=== PATIENT | female | born 2000 | race Caucasian/White ===

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

== ENCOUNTER → 2021-02-17 15:21 | Outpatient (BNVA) | payer MEDICAID, SELFPAY | PROVIDERS: PCP Registered Nurse; Visit Provider Registered Nurse | DX: N92.6 Irregular menstruation, unspecified (principal); N91.2 Amenorrhea, unspecified | CPT/HCPCS: 81025 ==

== ENCOUNTER → 2021-02-25 16:10 | Outpatient (BNVA) | payer MEDICAID, SELFPAY | PROVIDERS: PCP Registered Nurse; Visit Provider Nurse Practitioner | DX: N92.6 Irregular menstruation, unspecified (principal) | CPT/HCPCS: 81025 ==

== ENCOUNTER → 2021-04-05 14:35 | Outpatient (BNVA) | payer MEDICAID, SELFPAY | PROVIDERS: PCP Registered Nurse; Visit Provider Nurse Practitioner Family | DX: Z20.822 Contact with and (suspected) exposure to COVID-19 (principal); J06.9 Acute upper respiratory infection, unspecified | CPT/HCPCS: 87635 ==

== ENCOUNTER 2021-05-11 22:50 | Emergency (ER) | payer MEDICARE, MEDICAID, SELFPAY ==
[2021-05-11 23:00] VITALS: BP 103/70; PULSE 77; RESP 18; TEMP 36.9; O2SAT 99; BMI 26.0
--- NOTE | 2021-05-11 23:29 | W.ED.ABDPA2 ---
HPI - Abdominal Pain General: Chief Complaint: Abdominal Pain Stated Complaint: Left Side ADB Pain Time Seen by Provider: 05/11/21 22:54 Source: patient Mode of arrival: ambulatory Limitations: no limitations History of Present Illness: HPI narrative: 21-year-old female states she been having left lower quadrant suprapubic pain over the last 3 days. States pain is been sharp in nature and rates it a 5 out of 10. She states her last menstruation was a week ago. Denies any dysuria or vaginal discharge. She denies any worsening or improving factors. Denies any vomiting or diarrhea. Associated Symptoms: Denies chills, dysuria and fever(s) Review of Systems Const: Denies: fever(s), chills, body aches or change in appetite Eyes: Denies: blurry vision or eye discomfort ENMT: Denies: throat pain or dental pain Card: Denies: chest pain Resp: Denies: dyspnea GI: Reports: abdominal pain : Denies: dysuria Musc: Denies: neck pain or back pain Skin/Breast: Denies: rash Neuro: Denies: headache(s) Psych: Denies: depression Stewart/Lymph: Denies: easy bruising All/Imm: Denies: urticaria PFSH ED PFSH: Medical History Intellectual disability Family History Mother Diabetes Father Diabetes Social History Smoking and tobacco status: never smoked Alcohol intake: never Adopted: No Caregiver/support person: No Lives independently: No Household members: significant other and children service: No Current occupational status: unemployed History of recent travel: No Sexually active: Yes Current gender identity: Female Physical Exam Const: COMMON NORMALS: no acute distress, patient oriented x3 and healthy appearing HENMT: COMMON NORMALS: normocephalic and atraumatic HEAD & SCALP: normocephalic and atraumatic Eye: COMMON NORMALS: Equal, round and reactive pupils present and EOMs intact bilaterally PUPIL: Yes Equal, round and reactive pupils present Neck/C-Spine: COMMON NORMALS: full ROM and supple Chest: COMMONS NORMALS: normal inspection of the chest and normal palpation of entire chest wall Resp: COMMON NORMALS: normal respiratory effort, No retractions, No use of accessory muscles and clear to auscultation bilaterally AUSCULTATION: clear to auscultation bilaterally Cardio: COMMON NORMALS: regular rate, regular rhythm and No murmurs present (Cardio) RATE: regular rate RHYTHM: regular rhythm GI: COMMON NORMALS: Normal to inspection, nondistended, normoactive bowel sounds present, Soft to palpation and no masses PALPATION: Yes Soft to palpation and Yes Tenderness to palpation present (GI) Details: LLQ Extremity: COMMON NORMALS: normal to inspection and full ROM Neuro: COMMON NORMALS: patient oriented x3, moves all extremities and no focal motor deficits Psych: COMMON NORMALS: mental status grossly normal, Normal thought process present and cooperative THOUGHT PROCESS: Normal thought process present Skin: COMMON NORMALS: no rashes or lesions noted and no wounds GENERAL SKIN EXAM: no rashes or lesions noted Course Vital Signs: Vital signs: Vital Signs Temperature 98.5 F 05/11/21 23:00 Pulse Rate 68 05/12/21 00:09 Respiratory Rate 16 05/12/21 00:09 Blood Pressure 96/58 05/12/21 00:09 Pulse Oximetry 99 05/12/21 00:09 MDM - Abdominal Pain MDM Narrative: Medical decision making narrative: Patient presents with abdominal pain likely from epiploic appendagitis. She is well-appearing here and CT scan shows no other findings. She is stable for discharge is to follow-up PCP and return if worsening. Lab Data: Labs: Lab Results 05/11/21 05/11/21 05/11/21 Range/Units 23:30 23:30 23:35 WBC 11.1 (4.5-13.0) 10^3/ uL RBC 4.96 (4.1-5.3) 10^6/u L Hgb 12.5 (11.5-15.3) g/dL Hct 40.5 (37.0-47.0) % MCV 81.7 (81-99) fl MCH 25.2 L (28.0-34.0) pg MCHC 30.9 (30.0-36.0) g/dL RDW 14.8 (12.1-15.1) % Plt Count 256 (130-400) 10^3/c mm MPV 12.0 H (7.4-10.4) fL Neut % (Auto) 66.1 % Lymph % (Auto) 24.3 % Mcduffie % (Auto) 6.6 % Eos % (Auto) 2.2 % Baso % (Auto) 0.5 % Neut # (Auto) 7.34 (1.8-8.0) 10^3/u L Lymph # (Auto) 2.7 (1.5-6.5) 10^3/u L Mcduffie # (Auto) 0.7 (0.2-0.9) 10^3/u L Eos # (Auto) 0.2 (0.0-0.8) 10^3/u L Baso # (Auto) 0.1 (0.0-0.1) 10^3/u L Nucleated RBC % (a uto) 0 % Nucleated RBCs # 0.0 /100WBC Sodium (136-145) mmol/L Potassium (3.5-5.1) mmol/L Chloride (98-107) mmol/L Carbon Dioxide (22-29) mmol/L Anion Gap (5-19) BUN (6-20) mg/dL Creatinine (0.5-0.9) mg/dL GFR Calculation (90-130) mL/min Glucose (65-115) mg/dL Calculated Osmolal ity (285-295) mOsm/k g Calcium (8.5-10.5) mg/dL Total Bilirubin (0.15-1.2) mg/dL AST (0-32) U/L ALT (0-33) U/L Alkaline Phosphata se (35-105) IU/L Total Protein (6.6-8.7) g/dL Albumin (3.5-5.2) g/dL Globulin (1.3-4.6) g/dL Lipase (13-60) U/L Urine Color Yellow (Yellow) Urine Appearance Clear (CLEAR) Urine pH 5 (5-7) Ur Specific Gravit y 1.025 (1.005-1.030) Urine Protein Neg (Negative) Urine Glucose (UA) Norm (Normal) Urine Ketones Negative (Negative) Urine Blood Neg (Negative) Urine Nitrate Negative (Negative) Urine Bilirubin Neg (Negative) Urine Urobilinogen 1 H (Negative) mg/dL Ur Leukocyte Sofia ase Negative (Negative) Urine HCG, Qual Negative (Negative) 05/11/21 Range/Units 23:35 WBC (4.5-13.0) 10^3/ uL RBC (4.1-5.3) 10^6/u L Hgb (11.5-15.3) g/dL Hct (37.0-47.0) % MCV (81-99) fl MCH (28.0-34.0) pg MCHC (30.0-36.0) g/dL RDW (12.1-15.1) % Plt Count (130-400) 10^3/c mm MPV (7.4-10.4) fL Neut % (Auto) % Lymph % (Auto) % Mcduffie % (Auto) % Eos % (Auto) % Baso % (Auto) % Neut # (Auto) (1.8-8.0) 10^3/u L Lymph # (Auto) (1.5-6.5) 10^3/u L Mcduffie # (Auto) (0.2-0.9) 10^3/u L Eos # (Auto) (0.0-0.8) 10^3/u L Baso # (Auto) (0.0-0.1) 10^3/u L Nucleated RBC % (a uto) % Nucleated RBCs # /100WBC Sodium 141 (136-145) mmol/L Potassium 4.1 (3.5-5.1) mmol/L Chloride 104 (98-107) mmol/L Carbon Dioxide 26 (22-29) mmol/L Anion Gap 15.1 (5-19) BUN 12 (6-20) mg/dL Creatinine 0.6 (0.5-0.9) mg/dL GFR Calculation 127.5 (90-130) mL/min Glucose 89 (65-115) mg/dL Calculated Osmolal ity 291 (285-295) mOsm/k g Calcium 9.2 (8.5-10.5) mg/dL Total Bilirubin 0.2 (0.15-1.2) mg/dL AST 17 (0-32) U/L ALT 20 (0-33) U/L Alkaline Phosphata se 86 (35-105) IU/L Total Protein 7.5 (6.6-8.7) g/dL Albumin 4.5 (3.5-5.2) g/dL Globulin 3.0 (1.3-4.6) g/dL Lipase 31 (13-60) U/L Urine Color (Yellow) Urine Appearance (CLEAR) Urine pH (5-7) Ur Specific Gravit y (1.005-1.030) Urine Protein (Negative) Urine Glucose (UA) (Normal) Urine Ketones (Negative) Urine Blood (Negative) Urine Nitrate (Negative) Urine Bilirubin (Negative) Urine Urobilinogen (Negative) mg/dL Ur Leukocyte Sofia ase (Negative) Urine HCG, Qual (Negative) Imaging Data ^: CT Abd/Pel: Attestation: I personally reviewed and interpreted this imaging study as follows: Radiologist's impression: [facility] [employer] [address] [address] Scan Report Signed Patient: Rupinder Boyer Unit #: [id number] : 2000 Age/Sex: 21 / F ADM Date: 05/11/21 Loc: ER Room/Bed: Attending Dr: Ordering Provider/Ordering MD: Mio Tapia MD Date of Service: 05/11/21 Procedure(s): CT abdomen pelvis w con* [id number] Accession Number(s): [id number] Report Number: [id number] PROCEDURE INFORMATION: Exam: CT Abdomen And Pelvis With Contrast Exam date and time: 05/11/2021 11:58 PM Age: 21 years old Clinical indication: Abdominal pain; Localized; Left; Prior surgery; Surgery type: Csection; Patient HX: Lt side abd pain. TECHNIQUE: Imaging protocol: Computed tomography of the abdomen and pelvis with contrast. Radiation optimization: All CT scans at this facility use at least one of these dose optimization techniques: automated exposure control; mA and/or kV adjustment per patient size (includes targeted exams where dose is matched to clinical indication); or iterative reconstruction. Contrast material: OMNI 300; Contrast volume: 95 ml; Contrast route: INTRAVENOUS (IV); COMPARISON: No relevant prior studies available. RADIATION DOSE METRICS: Total DLP (mGy-cm): 1094.73 FINDINGS: Liver: Normal. No mass. Gallbladder and bile ducts: Normal. No calcified stones. No ductal dilation. Pancreas: Normal. No ductal dilation. Spleen: Normal. No splenomegaly. Adrenal glands: Normal. No mass. Kidneys and ureters: One or more nonobstructing left renal calyceal stones. Stomach and bowel: Epiploic appendagitis in the left lower quadrant near the junction of the descending colon and sigmoid colon, axial series 2, image 65, coronal image 34. Appendix: Normal appendix. Intraperitoneal space: Unremarkable. No free air. No significant fluid collection. Vasculature: Unremarkable. No abdominal aortic aneurysm. Lymph nodes: Unremarkable. No enlarged lymph nodes. Urinary bladder: Unremarkable as visualized. Reproductive: Unremarkable as visualized. Bones/joints: Unremarkable. No acute fracture. Soft tissues: Unremarkable. CT/CT abdomen pelvis w con* [id number] IMPRESSION: Epiploic appendagitis in the left lower quadrant near the junction of the descending colon and sigmoid colon, axial series 2, image 65, coronal image 34. Radiation Dose CTDIVOL = (mGy): DLP = 1094.73 (mGy-cm) Dictated By: Steven Eckert MD Signed By: Steven Eckert MD Signed Date/Time: 05/12/21107 DD/ 5 Discharge Plan Discharge Patient Disposition: Home Clinical Impression: Epiploic appendagitis Condition: Stable Prescriptions: New hydrocodone-acetaminophen 5-325 mg tablet 1 tab PO Q6H PRN (Reason: pain) Qty: 14 RF: 0 ondansetron 4 mg tablet,disintegrating 4 mg PO Q6H PRN (Reason: nausea and vomiting) Qty: 14 RF: 0 Discharge Orders: Discharge ED (Routine); Ordered 05/12/21 Ordered By: Mio Tapia Discharge Diet: Advance as tolerated Discharge Activity: Resume usual activity Patient Instructions: Abdominal Pain (ED), Opioid Safety Coding Level of Care Code ED Dice Dealer for Patria Fwd Exam Comprehensive
[2021-05-11 23:49] VITALS: BP 98/67; PULSE 74; RESP 16; O2SAT 98
[2021-05-11 23:50] LABS: Basophils # 0.1 10^3/uL (0.0-0.1); Basophils % 0.5 %; Eosinophils # 0.2 10^3/uL (0.0-0.8); Eosinophils % 2.2 %; Hematocrit 40.5 % (37.0-47.0); Hemoglobin 12.5 g/dL (11.5-15.3); Lymphocytes # 2.7 10^3/uL (1.5-6.5); Lymphocytes % 24.3 %; Mean Corpuscular HGB Conc 30.9 g/dL (30.0-36.0); Mean Corpuscular Hemoglobin 25.2 pg (28.0-34.0); Mean Corpuscular Volume 81.7 fl (81-99); Monocytes # 0.7 10^3/uL (0.2-0.9); Monocytes % 6.6 %; Neutrophils # 7.34 10^3/uL (1.8-8.0); Neutrophils % 66.1 %; Nucleated Red Blood Cells % 0 %; Platelet Count 256 10^3/cmm (130-400); Red Blood Count 4.96 10^6/uL (4.1-5.3); Red Cell Distribution Width 14.8 % (12.1-15.1); White Blood Count 11.1 10^3/uL (4.5-13.0)
[2021-05-11 23:53] LABS: Add Urine Microscopic? NO; Charge for UA Resulting for Rev
[2021-05-11 23:55] LABS: Bilirubin Urine Neg (Negative); Blood Urine Neg (Negative); Glucose Urine UA Norm (Normal); Ketones Urine Negative (Negative); Leukocyte Esterase Urine Negative (Negative); Nitrate Urine Negative (Negative); Protein Urine Neg (Negative); Specific Gravity, Urine 1.025 (1.005-1.030); Urine Appearance Clear (CLEAR); Urine Color Yellow (Yellow); Urobilinogen Urine 1 mg/dL (Negative); pH Urine 5 (5-7)
--- NOTE | 2021-05-11 23:58 | CTR_ITS ---
PROCEDURE INFORMATION: Exam: CT Abdomen And Pelvis With Contrast Exam date and time: 05/11/2021 11:58 PM Age: 21 years old Clinical indication: Abdominal pain; Localized; Left; Prior surgery; Surgery type: Csection; Patient HX: Lt side abd pain. TECHNIQUE: Imaging protocol: Computed tomography of the abdomen and pelvis with contrast. Radiation optimization: All CT scans at this facility use at least one of these dose optimization techniques: automated exposure control; mA and/or kV adjustment per patient size (includes targeted exams where dose is matched to clinical indication); or iterative reconstruction. Contrast material: OMNI 300; Contrast volume: 95 ml; Contrast route: INTRAVENOUS (IV); COMPARISON: No relevant prior studies available. RADIATION DOSE METRICS: Total DLP (mGy-cm): 1094.73 FINDINGS: Liver: Normal. No mass. Gallbladder and bile ducts: Normal. No calcified stones. No ductal dilation. Pancreas: Normal. No ductal dilation. Spleen: Normal. No splenomegaly. Adrenal glands: Normal. No mass. Kidneys and ureters: One or more nonobstructing left renal calyceal stones. Stomach and bowel: Epiploic appendagitis in the left lower quadrant near the junction of the descending colon and sigmoid colon, axial series 2, image 65, coronal image 34. Appendix: Normal appendix. Intraperitoneal space: Unremarkable. No free air. No significant fluid collection. Vasculature: Unremarkable. No abdominal aortic aneurysm. Lymph nodes: Unremarkable. No enlarged lymph nodes. Urinary bladder: Unremarkable as visualized. Reproductive: Unremarkable as visualized. Bones/joints: Unremarkable. No acute fracture. Soft tissues: Unremarkable. CT/CT abdomen pelvis w con* [id number] IMPRESSION: Epiploic appendagitis in the left lower quadrant near the junction of the descending colon and sigmoid colon, axial series 2, image 65, coronal image 34. Radiation Dose CTDIVOL = (mGy): DLP = 1094.73 (mGy-cm)
[2021-05-11 23:59] VITALS: RESP 18
[2021-05-11] MEDS: morphine 4 mg/mL SDV 1 mL IVP (23:59)
[2021-05-11] MEDS: ondansetron 2 mg/ML SDV 2 mL 4 MG IVP (23:59)
[2021-05-12 00:06] LABS: Alanine Aminotransferase 20 U/L (0-33); Albumin Level 4.5 g/dL (3.5-5.2); Alkaline Phosphatase 86 IU/L (35-105); Anion Gap 15.1 (5-19); Aspartate Amino Transferase 17 U/L (0-32); Blood Urea Nitrogen 12 mg/dL (6-20); Calcium 9.2 mg/dL (8.5-10.5); Carbon Dioxide 26 mmol/L (22-29); Chloride 104 mmol/L (98-107); Glomerular Filtration Rate 127.5 mL/min (90-130); Glucose 89 mg/dL (65-115); Lipase 31 U/L (13-60); Osmolality Calculated 291 mOsm/kg (285-295); Potassium 4.1 mmol/L (3.5-5.1); Sodium 141 mmol/L (136-145); Total Bilirubin 0.2 mg/dL (0.15-1.2); Total Protein 7.5 g/dL (6.6-8.7)
[2021-05-12 00:09] VITALS: BP 96/58; PULSE 68; RESP 16; O2SAT 99
[2021-05-12] MEDS: iohexol 300 mg/mL 100 mL Btl IV (00:09)
--- NOTE | 2021-05-12 00:09 | PC.NURSE ---
patient to ct
[2021-05-12] MEDS: morphine 4 mg/mL SDV 1 mL IVP (01:24)
[2021-05-12 01:25] VITALS: BP 119/77; PULSE 76; RESP 18; O2SAT 99
[2021-05-12 01:33] VITALS: BP 108/77; PULSE 79; RESP 18; O2SAT 99
== END 2021-05-12 01:33 | disposition home or self-care (01) ==
PROVIDERS: Emergency Provider Emergency Medicine
DX: K63.89 Other specified diseases of intestine (principal)
CPT/HCPCS: 74177; 80053; 81003; 81025; 83690; 85025; 96374; 96375; 96376; 99283; J2270; J2405; Q9967

== ENCOUNTER 2021-05-20 18:54 | Emergency (ER) | payer MEDICARE, MEDICAID, SELFPAY ==
[2021-05-20 19:01] VITALS: BP 100/65; PULSE 100; RESP 18; TEMP 36.5; O2SAT 99; BMI 26.0
--- NOTE | 2021-05-20 19:08 | PC.NURSE ---
Urine collected and sent to lab in triage
[2021-05-20 19:43] VITALS: BP 111/54; PULSE 68; RESP 16; TEMP 37.1; O2SAT 98
[2021-05-20 19:45] LABS: Basophils # 0.1 10^3/uL (0.0-0.1); Basophils % 0.4 %; Eosinophils # 0.3 10^3/uL (0.0-0.8); Eosinophils % 2.7 %; Hematocrit 40.2 % (37.0-47.0); Hemoglobin 12.3 g/dL (11.5-15.3); Lymphocytes # 2.4 10^3/uL (1.5-6.5); Lymphocytes % 21.6 %; Mean Corpuscular HGB Conc 30.6 g/dL (30.0-36.0); Mean Corpuscular Hemoglobin 25.1 pg (28.0-34.0); Mean Platelet Volume 11.6 fL (7.4-10.4); Monocytes # 0.8 10^3/uL (0.2-0.9); Monocytes % 7.3 %; Neutrophils # 7.64 10^3/uL (1.8-8.0); Neutrophils % 67.7 %; Nucleated Red Blood Cells % 0 %; Platelet Count 274 10^3/cmm (130-400); Red Cell Distribution Width 14.6 % (12.1-15.1); White Blood Count 11.3 10^3/uL (4.5-13.0)
--- NOTE | 2021-05-20 19:45 | ED_ITS ---
HPI - Abdominal Pain General: Chief Complaint: Abdominal Pain Stated Complaint: L side Pain Time Seen by Provider: 05/20/21 19:10 History of Present Illness: HPI narrative: Patient presents with same pain that she had last week. Patient states medication did help her get better and then the pain has come back. She denies any fever chills nausea vomiting or diarrhea. MD elicited complaint: abdominal pain Pertinent past history: other (Seen last week epiploic appendagitis) Onset (ago): day(s) Pain Consistency: intermittent Location: LUQ and LLQ Severity: mild Quality: aching Radiation: other (Across abdomen) Exacerbating factors: nothing Relieving factors: nothing Associated Symptoms: Reports no associated symptoms; Denies chills, fever(s), nausea and vomiting Related Data: Date of Last Menstrual Period: 05/01/21 Review of Systems Const: Denies: fever(s), chills or body aches Eyes: Denies: change in vision or blurry vision ENMT: Denies: throat pain or nasal congestion Card: Denies: chest pain or dyspnea on exertion Resp: Denies: dyspnea, productive cough or non-productive cough GI: Reports: abdominal pain; Denies: nausea or vomiting Musc: Denies: extremity pain Skin/Breast: Denies: rash Neuro: Denies: headache(s) Psych: Denies: anxiety or depression Stewart/Lymph: Denies: easy bruising PFSH ED PFSH: Medical History Intellectual disability Family History Mother Diabetes Father Diabetes Social History Smoking and tobacco status: never smoked Alcohol intake: never Adopted: No Caregiver/support person: No Lives independently: No Household members: significant other and children service: No Current occupational status: unemployed History of recent travel: No Sexually active: Yes Current gender identity: Female Female Reproductive History: Date of last menstrual period: 05/01/21 Physical Exam Const: COMMON NORMALS: no acute distress, average body habitus and patient oriented x3 HENMT: COMMON NORMALS: normocephalic HEAD & SCALP: normal to inspection and normocephalic FACE & SINUS: normal facial exam Eye: COMMON NORMALS: conjunctivae normal GENERAL EYE: appearance normal, both eyes and all related structures CONJUNCTIVA: Yes conjunctivae normal Neck/C-Spine: COMMON NORMALS: no JVD Chest: COMMONS NORMALS: normal inspection of the chest Resp: COMMON NORMALS: normal respiratory effort and clear to auscultation bilaterally AUSCULTATION: clear to auscultation bilaterally Cardio: COMMON NORMALS: no JVD, regular rate and regular rhythm RATE: regular rate RHYTHM: regular rhythm GI: COMMON NORMALS: Normal to inspection, nondistended, normoactive bowel sounds present Extremity: COMMON NORMALS: normal to inspection and full ROM Neuro: COMMON NORMALS: patient oriented x3 Course Vital Signs: Vital signs: Vital Signs Temperature 98.7 F 05/20/21 19:43 Pulse Rate 68 05/20/21 19:43 Respiratory Rate 16 05/20/21 19:43 Blood Pressure 111/54 05/20/21 19:43 Pulse Oximetry 98 05/20/21 19:43 MDM - Abdominal Pain MDM Narrative: Medical decision making narrative: Labs appear normal. White count is fine. Urine appears contaminated with epithelial cells. Patient encouraged to take another week of medication follow-up primary care provider Lab Data: Labs: Lab Results 05/20/21 05/20/21 05/20/21 19:01 19:39 19:39 WBC 11.3 10^3/uL 10^3 /uL (4.5-13.0) RBC 4.90 10^6/uL 10^6 /uL (4.1-5.3) Hgb 12.3 g/dL g/dL (11.5-15.3) Hct 40.2 % % (37.0-47.0) MCV 82.0 fl fl (81-99) MCH 25.1 pg L pg (28.0-34.0) MCHC 30.6 g/dL g/dL (30.0-36.0) RDW 14.6 % % (12.1-15.1) Plt Count 274 10^3/cmm 10^3 /cmm (130-400) MPV 11.6 fL H fL (7.4-10.4) Neut % (Auto) 67.7 % % Lymph % (Auto) 21.6 % % Sullivan % (Auto) 7.3 % % Eos % (Auto) 2.7 % % Baso % (Auto) 0.4 % % Neut # (Auto) 7.64 10^3/uL 10^3 /uL (1.8-8.0) Lymph # (Auto) 2.4 10^3/uL 10^3/ uL (1.5-6.5) Sullivan # (Auto) 0.8 10^3/uL 10^3/ uL (0.2-0.9) Eos # (Auto) 0.3 10^3/uL 10^3/ uL (0.0-0.8) Baso # (Auto) 0.1 10^3/uL 10^3/ uL (0.0-0.1) Nucleated RBC % (a uto) 0 % % Nucleated RBCs # 0.0 /100WBC /100W BC Sodium 139 mmol/L mmol/L (136-145) Potassium 3.6 mmol/L mmol/L (3.5-5.1) Chloride 105 mmol/L mmol/L (98-107) Carbon Dioxide 26 mmol/L mmol/L (22-29) Anion Gap 11.6 (5-19) BUN 11 mg/dL mg/dL (6-20) Creatinine 0.7 mg/dL mg/dL (0.5-0.9) GFR Calculation 106.7 mL/min mL/m in (90-130) Glucose 127 mg/dL H mg/dL (65-115) Calculated Osmolal ity 289 mOsm/kg mOsm/ kg (285-295) Calcium 9.1 mg/dL mg/dL (8.5-10.5) Lipase 32 U/L U/L (13-60) Urine Color Yellow (Yellow) Urine Appearance Sl cloudy A (CLEAR) Urine pH 5 (5-7) Ur Specific Gravit y 1.025 (1.005-1.030) Urine Protein Neg (Negative) Urine Glucose (UA) Norm (Normal) Urine Ketones 1+ H (Negative) Urine Blood Neg (Negative) Urine Nitrate Negative (Negative) Urine Bilirubin Neg (Negative) Urine Urobilinogen 1 mg/dL H mg/dL (Negative) Ur Leukocyte Sofia ase 1+ H (Negative) Urine RBC 0-4 /hpf H /hpf (0-2) Urine WBC 10-15 /hpf H /hpf (0-5) Ur Squamous Epith Cells 25-40 /hpf H /hpf (0-5) Amorphous Sediment Not Reportable Urine Bacteria 2+ /hpf H /hpf (NONE) Urine Mucus 2+ /hpf /hpf Discharge Plan Discharge Patient Disposition: Home Clinical Impression: Epiploic appendagitis Condition: Stable Prescriptions: New Celebrex 100 mg capsule 100 mg PO BID Qty: 20 RF: 0 Discharge Orders: Discharge ED (Routine); Ordered 05/20/21 Ordered By: Jasper Jane Discharge Diet: Usual diet Discharge Activity: Resume usual activity Activity Restrictions/Additional Instructions: Follow-up with medical provider as directed. Take medications as prescribed. Return to the ER or your medical provider if condition worsens. Please read and understand discharge instructions. If any questions ask please. You have epiploic appendagitis. Generally benign resolves within 2 weeks. If no significant provement after next week follow-up your primary care provider Coding Level of Care Code ED Deportation Examiner for Patria Fwsaumya Exam Comprehensive
[2021-05-20 20:02] LABS: Anion Gap 11.6 (5-19); Blood Urea Nitrogen 11 mg/dL (6-20); Calcium 9.1 mg/dL (8.5-10.5); Carbon Dioxide 26 mmol/L (22-29); Chloride 105 mmol/L (98-107); Glomerular Filtration Rate 106.7 mL/min (90-130); Glucose 127 mg/dL (65-115); Lipase 32 U/L (13-60); Osmolality Calculated 289 mOsm/kg (285-295); Potassium 3.6 mmol/L (3.5-5.1); Sodium 139 mmol/L (136-145)
[2021-05-20 20:06] LABS: Urine Color Yellow (Yellow)
[2021-05-20 20:07] LABS: Add Urine Microscopic? YES; Bacteria Urine 2+ /hpf; Bilirubin Urine Neg (Negative); Blood Urine Neg (Negative); Glucose Urine UA Norm (Normal); Ketones Urine 1+ (Negative); Leukocyte Esterase Urine 1+ (Negative); Nitrate Urine Negative (Negative); Protein Urine Neg (Negative); RBC Urine 0-4 /hpf (0-2); Specific Gravity, Urine 1.025 (1.005-1.030); Squamous Epithelial Cell Urine 25-40 /hpf (0-5); Urobilinogen Urine 1 mg/dL (Negative); pH Urine 5 (5-7)
[2021-05-20 20:08] LABS: Add Urine Culture? No; Mucus Urine 2+ /hpf
[2021-05-20] MEDS: CELEcoxib 200 mg Capsule 400 MG PO (21:04)
== END 2021-05-20 21:05 | disposition home or self-care (01) ==
PROVIDERS: Emergency Provider Nurse Practitioner Family
DX: K63.89 Other specified diseases of intestine (principal)
CPT/HCPCS: 80048; 81001; 83690; 85025; 99283

== ENCOUNTER → 2021-05-27 13:18 | Outpatient (BNVA) | payer MEDICARE, MEDICAID, SELFPAY | PROVIDERS: Visit Provider Registered Nurse | DX: Z09 Encounter for follow-up examination after completed treatment for conditions other than malignant neoplasm (principal); K63.89 Other specified diseases of intestine | CPT/HCPCS: 81000 ==

== ENCOUNTER 2022-05-16 10:14 | Emergency (ER) | payer MEDICARE, MEDICAID, SELFPAY ==
[2022-05-16 10:29] VITALS: BP 118/65; PULSE 92; RESP 16; TEMP 36.8; O2SAT 97; BMI 25.7
[2022-05-16 10:40] LABS: Glucose Point of Care 110 mg/dL (70-110)
[2022-05-16 11:07] LABS: Basophils % 0.4 %; Eosinophils # 0.1 10^3/uL (0.0-0.8); Eosinophils % 1.2 %; Hematocrit 44.5 % (37.0-47.0); Hemoglobin 13.6 g/dL (11.5-15.3); Lymphocytes # 2.5 10^3/uL (0.8-4.8); Lymphocytes % 24.4 %; Mean Corpuscular HGB Conc 30.6 g/dL (30.0-36.0); Mean Corpuscular Hemoglobin 25.4 pg (28.0-34.0); Mean Corpuscular Volume 83.2 fl (81-99); Mean Platelet Volume 12.3 fL (7.4-10.4); Monocytes # 0.6 10^3/uL (0.2-0.9); Neutrophils # 7.04 10^3/uL (1.8-7.7); Neutrophils % 67.7 %; Nucleated Red Blood Cells % 0 %; Platelet Count 242 10^3/cmm (130-400); Red Blood Count 5.35 10^6/uL (4.1-5.3); Red Cell Distribution Width 14.5 % (12.1-15.1); White Blood Count 10.4 10^3/uL (4.0-10.0)
--- NOTE | 2022-05-16 11:20 | ED_ITS ---
HPI - Abdominal Pain General: Chief Complaint: Abdominal Pain Stated Complaint: ABD Pain Time Seen by Provider: 05/16/22 10:55 Source: patient Mode of arrival: ambulatory Limitations: no limitations History of Present Illness: This patient presents by private vehicle for abdominal pain. She states this pain began earlier this morning. She states she had the urge to defecate and she had a bowel movement but pain is still present. She does relate prior episodes of what she says is constipation but states she is not had symptoms like this in the past that she is aware. She denies any dysuria. Vomiting or diarrhea. She states she does not have an appetite. No history of recent fevers or injury. She denies vaginal discharge. She uses Depo-Provera for contraception. She denies abdominal surgeries. She denies known exposure to infectious disease recent travel recent antibiotic use etc. No history of frequent urinary tract infections, STDs, kidney stones. Pain Consistency: constant Location: LLQ Severity: moderate Quality: sharp Migration to: no migration Relieving factors: nothing Associated Symptoms: Denies bloating, chills, diarrhea, dysuria, fever(s), syncope and vomiting Related Data: Date of Last Menstrual Period: 05/01/21 Review of Systems Const: Denies: fever(s) or chills Eyes: Denies: change in vision ENMT: Denies: throat pain, odynophagia or nasal congestion Card: Denies: chest pain, palpitations, lightheadedness or syncope Resp: Denies: dyspnea, productive cough or non-productive cough GI: Reports: abdominal pain; Denies: vomiting, diarrhea or bloating : Denies: flank pain, difficulty voiding, dysuria, urinary frequency, vaginal discharge or pelvic pain Skin/Breast: Denies: rash or pruritus Neuro: Denies: headache(s), numbness in extremities or weakness in extremities Psych: Denies: anxiety or depression PFS ED PFSH: Medical History Intellectual disability Family History Mother Diabetes Father Diabetes Social History Smoking and tobacco status: never smoked Alcohol intake: never Adopted: No Caregiver/support person: No Lives independently: No Household members: significant other and children service: No Current occupational status: unemployed History of recent travel: No Sexually active: Yes Current gender identity: Female Female Reproductive History: Date of last menstrual period: 05/01/21 Physical Exam Narrative: EXAM NARRATIVE: She appears uncomfortable but is able to communicate in full sentences and make good eye contact. Const: COMMON NORMALS: average body habitus, patient oriented x3, healthy appearing and alert HENMT: COMMON NORMALS: normocephalic, atraumatic, Normal nasal mucous membranes and turbinates present, moist oral mucous membranes and oropharynx normal HEAD & SCALP: normocephalic and atraumatic FACE & SINUS: normal facial exam NOSE: Normal nasal mucous membranes and turbinates present Eye: COMMON NORMALS: Equal, round and reactive pupils present, conjunctivae normal and no scleral icterus CONJUNCTIVA: Yes conjunctivae normal PUPIL: Yes Equal, round and reactive pupils present Neck/C-Spine: COMMON NORMALS: full ROM and no meningeal signs Chest: COMMONS NORMALS: normal inspection of the chest Resp: COMMON NORMALS: normal respiratory effort, No retractions and clear to auscultation bilaterally EFFORT & INSPECTION: Yes able to speak in complete sentences AUSCULTATION: clear to auscultation bilaterally Cardio: COMMON NORMALS: regular rate, regular rhythm, No murmurs present (Cardio) and Peripheral pulses 2+ throughout RATE: regular rate RHYTHM: regular rhythm PERIPHERAL PULSES: Peripheral pulses 2+ throughout GI: COMMON NORMALS: Normal to inspection, nondistended, normoactive bowel sounds present INSPECTION: Yes normal to inspection OTHER: Abdomen is generally normal in appearance without any ecchymosis skin rash etc. Her abdomen is soft to palpation however she has voluntary guarding with palpation of the left lower quadrant. Rotation of her trunk seem to exacerbate her symptoms. No other areas of focal tenderness noted. No palpable mass externally. : COMMON NORMALS: Yes no CVA tenderness BLADDER/KIDNEY EXAM: Yes no CVA tenderness Back/Pelvis: COMMON NORMALS: no CVA tenderness, thoracic and lumbar spine normal to inspection, no thoracic nor lumbar tenderness and thoraco-lumbar ROM normal Extremity: COMMON NORMALS: normal to inspection, capillary refill normal, no calf tenderness and no pedal edema Neuro: COMMON NORMALS: patient oriented x3, moves all extremities, no focal motor deficits and gait normal SENSORIUM/ORIENTATION: Yes alert MENINGEAL SIGNS: Yes no meningeal signs Psych: COMMON NORMALS: mental status grossly normal and cooperative Skin: COMMON NORMALS: no rashes or lesions noted, turgor normal and no jaundice GENERAL SKIN EXAM: no rashes or lesions noted and turgor normal Course Reevaluation(s): Reevaluation #1: Patient was reevaluated. She was observed to be very comfortable. She was interacting with her mobile phone when I entered the room. She was smiling and interacting in a normal voice. Repeat examination reveals her abdomen to be soft without any rebound, guarding, other concerning findings upon repeat examination. I shared with her her findings likely suggestive and supportive of a bladder or lower urinary tract infection as the etiology of her symptoms and that I did not feel that clinically imaging or additional work-up was indicated at this point in time that we would begin empiric treatment. She acknowledged our discussion and was satisfied with the plan of care. Time: 12:54 Vital Signs: Vital signs: Vital Signs Temperature 98.2 F 05/16/22 10:29 Pulse Rate 92 05/16/22 10:29 Respiratory Rate 16 05/16/22 10:29 Blood Pressure 118/65 05/16/22 10:29 Pulse Oximetry 97 05/16/22 10:29 Oxygen Delivery Me thod 05/16/22 10:29 MDM - Abdominal Pain Medical Decision Making Otherwise healthy young woman who presented with lower abdominal discomfort this morning. Her clinical exam did not suggest a surgical abdomen and ancillary studies supported likely lower urinary tract infection as the etiology to her symptoms. She was extremely comfortable and symptoms resolved after single ad ministration of ketorolac upon reexamination no new or focal findings. We will begin empiric therapy with return precautions which she acknowledged. Of also advised her to continue increased fluids and fiber given her history of recurrent constipation however her clinical examination revealed no evidence at this time of an ongoing emergency medical condition required further hospital or emergency department observation or work-up. Medical Records I reviewed the patient's medical records. Lab Data I reviewed the patient's lab results. : 05/16/22 11:00 05/16/22 11:00 Labs/Radiology: Laboratory Results WBC 10.4 10^3/uL (4.0-10.0) H 05/16/22 11:00 RBC 5.35 10^6/uL (4.1-5.3) H 05/16/22 11:00 Hgb 13.6 g/dL (11.5-15.3) 05/16/22 11:00 Hct 44.5 % (37.0-47.0) 05/16/22 11:00 MCV 83.2 fl (81-99) 05/16/22 11:00 MCH 25.4 pg (28.0-34.0) L 05/16/22 11:00 MCHC 30.6 g/dL (30.0-36.0) 05/16/22 11:00 RDW 14.5 % (12.1-15.1) 05/16/22 11:00 Plt Count 242 10^3/cmm (130-400) 05/16/22 11:00 MPV 12.3 fL (7.4-10.4) H 05/16/22 11:00 Neut % (Auto) 67.7 % 05/16/22 11:00 Lymph % (Auto) 24.4 % 05/16/22 11:00 [place] % (Auto) 6.0 % 05/16/22 11:00 Eos % (Auto) 1.2 % 05/16/22 11:00 Baso % (Auto) 0.4 % 05/16/22 11:00 Neut # (Auto) 7.04 10^3/uL (1.8-7.7) 05/16/22 11:00 Lymph # (Auto) 2.5 10^3/uL (0.8-4.8) 05/16/22 11:00 [place] # (Auto) 0.6 10^3/uL (0.2-0.9) 05/16/22 11:00 Eos # (Auto) 0.1 10^3/uL (0.0-0.8) 05/16/22 11:00 Baso # (Auto) 0.0 10^3/uL (0.0-0.1) 05/16/22 11:00 Nucleated RBC % (auto) 0 % 05/16/22 11:00 Nucleated RBCs # 0.0 /100WBC 05/16/22 11:00 Sodium 138 mmol/L (136-145) 05/16/22 11:00 Potassium 3.9 mmol/L (3.5-5.1) 05/16/22 11:00 Chloride 101 mmol/L (98-107) 05/16/22 11:00 Carbon Dioxide 24 mmol/L (22-29) 05/16/22 11:00 Anion Gap 16.9 (5-19) 05/16/22 11:00 BUN 11 mg/dL (6-20) 05/16/22 11:00 Creatinine 0.9 mg/dL (0.5-0.9) 05/16/22 11:00 GFR Calculation 79.0 mL/min (90-130) L 05/16/22 11:00 Glucose 118 mg/dL (65-115) H 05/16/22 11:00 POC Glucose 110 mg/dL (70-110) 05/16/22 10:34 Calculated Osmolality 286 mOsm/kg (285-295) 05/16/22 11:00 Calcium 9.6 mg/dL (8.5-10.5) 05/16/22 11:00 Total Bilirubin 0.3 mg/dL (0.15-1.2) 05/16/22 11:00 AST 17 U/L (0-32) 05/16/22 11:00 ALT 20 U/L (0-33) 05/16/22 11:00 Alkaline Phosphatase 75 U/L (35-105) 05/16/22 11:00 Total Protein 8.0 g/dL (6.6-8.7) 05/16/22 11:00 Albumin 4.7 g/dL (3.5-5.2) 05/16/22 11:00 Globulin 3.3 g/dL (1.3-4.6) 05/16/22 11:00 HCG, Qual Negative (Negative) 05/16/22 12:00 Urine Color Yellow (Yellow) 05/16/22 12:00 Urine Appearance Hazy (CLEAR) A 05/16/22 12:00 Urine pH 5 (5-7) 05/16/22 12:00 Ur Specific [place] 1.020 (1.005-1.030) 05/16/22 12:00 Urine Protein Trace (Negative) 05/16/22 12:00 Urine Glucose (UA) Norm (Normal) 05/16/22 12:00 Urine Ketones 1+ (Negative) H 05/16/22 12:00 Urine Blood 3+ (Negative) H 05/16/22 12:00 Urine Nitrate Negative (Negative) 05/16/22 12:00 Urine Bilirubin Neg (Negative) 05/16/22 12:00 Urine Urobilinogen Neg mg/dL (Negative) 05/16/22 12:00 Ur Leukocyte Esterase Trace (Negative) H 05/16/22 12:00 Urine RBC 25-40 /hpf (0-2) H 05/16/22 12:00 Urine WBC 5-10 /hpf (0-5) H 05/16/22 12:00 Ur Squamous Epith Cells 5-10 /hpf (0-5) H 05/16/22 12:00 Amorphous Sediment 1+ /hpf 05/16/22 12:00 Urine Bacteria Trace /hpf (NONE) 05/16/22 12:00 Urine Mucus 1+ /hpf 05/16/22 12:00 Discharge Plan Discharge Patient Disposition: Home Clinical Impression: Urinary tract infection Condition: Stable Prescriptions: New cephalexin 250 mg/5 mL suspension for reconstitution 500 mg PO BID 7 Days Qty: 140 0RF Discharge Orders: Discharge ED (Routine); Ordered 05/16/22 Ordered By: Manfred Christine Referrals: Carlos Alas FNP [Primary Care Provider] - Discharge Diet: Usual diet Discharge Activity: Increase activity as tolerated Patient Instructions: Opioid Safety, Pain Management Activity Restrictions/Additional Instructions: Ensure that you are drinking at least 1 to 2 L of fluids such as water, sports drinks etc. daily. Take medications as prescribed. If your symptoms do not continue to improve, return, or new symptoms develop at any time return to this or the nearest emergency department. 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
[2022-05-16 11:28] LABS: Alanine Aminotransferase 20 U/L (0-33); Albumin Level 4.7 g/dL (3.5-5.2); Alkaline Phosphatase 75 U/L (35-105); Anion Gap 16.9 (5-19); Aspartate Amino Transferase 17 U/L (0-32); Blood Urea Nitrogen 11 mg/dL (6-20); Calcium 9.6 mg/dL (8.5-10.5); Carbon Dioxide 24 mmol/L (22-29); Chloride 101 mmol/L (98-107); Globulin 3.3 g/dL (1.3-4.6); Glucose 118 mg/dL (65-115); Osmolality Calculated 286 mOsm/kg (285-295); Potassium 3.9 mmol/L (3.5-5.1); Sodium 138 mmol/L (136-145); Total Bilirubin 0.3 mg/dL (0.15-1.2)
[2022-05-16] MEDS: ketorolac 30 mg/mL INJ 15 MG IVP (12:02)
[2022-05-16 12:08] LABS: HCG Qualitative Urine. Negative (Negative)
[2022-05-16 12:42] LABS: Glucose Urine UA Norm (Normal); Ketones Urine 1+ (Negative); Protein Urine Trace (Negative); Urine Appearance Hazy (CLEAR); Urine Color Yellow (Yellow); pH Urine 5 (5-7)
[2022-05-16 12:43] LABS: Add Urine Microscopic? YES; Bilirubin Urine Neg (Negative); Blood Urine 3+ (Negative); Leukocyte Esterase Urine Trace (Negative); Nitrate Urine Negative (Negative); Urobilinogen Urine Neg (Negative)
[2022-05-16 12:44] LABS: Add Urine Culture? Yes; Amorphous Sediment Urine 1+ /hpf; Bacteria Urine TRACE /hpf; Mucus Urine 1+ /hpf; RBC Urine 25-40 /hpf (0-2)
[2022-05-16 13:09] VITALS: BP 105/69; PULSE 66; RESP 16; O2SAT 99
== END 2022-05-16 13:14 | disposition home or self-care (01) ==
PROVIDERS: Emergency Provider Emergency Medicine; PCP Registered Nurse
DX: N39.0 Urinary tract infection, site not specified (principal)
CPT/HCPCS: 36416; 80053; 81001; 81025; 82962; 85025; 87086; 96374; 99284; J1885

== ENCOUNTER → 2022-06-29 18:41 | Outpatient (BNVA) | payer MEDICARE, MEDICAID, SELFPAY | PROVIDERS: PCP Registered Nurse; Visit Provider Emergency Medicine | DX: Z20.2 Contact with and (suspected) exposure to infections with a predominantly sexual mode of transmission (principal) | CPT/HCPCS: 81025; 87491; 87591 ==

== ENCOUNTER 2022-07-30 05:41 | Emergency (ER) | payer MEDICARE, MEDICAID, SELFPAY ==
[2022-07-30 05:43] VITALS: BP 109/74; PULSE 86; RESP 16; TEMP 36.6; O2SAT 98; BMI 25.9
[2022-07-30 06:28] LABS: Basophils # 0.1 10^3/uL (0.0-0.1); Basophils % 0.8 %; Eosinophils # 0.2 10^3/uL (0.0-0.8); Eosinophils % 2.4 %; Hematocrit 40.4 % (37.0-47.0); Hemoglobin 12.7 g/dL (11.5-15.3); Lymphocytes # 2.4 10^3/uL (0.8-4.8); Lymphocytes % 33.4 %; Mean Corpuscular HGB Conc 31.4 g/dL (30.0-36.0); Mean Corpuscular Volume 82.6 fl (81-99); Mean Platelet Volume 11.9 fL (7.4-10.4); Monocytes # 0.5 10^3/uL (0.2-0.9); Monocytes % 7.3 %; Neutrophils % 55.8 %; Nucleated Red Blood Cells % 0 %; Platelet Count 204 10^3/cmm (130-400); Red Blood Count 4.89 10^6/uL (4.1-5.3); Red Cell Distribution Width 13.9 % (12.1-15.1); White Blood Count 7.2 10^3/uL (4.0-10.0)
[2022-07-30] MEDS: sodium chloride 0.9% 1,000 ML 999 ML IV (06:30)
--- NOTE | 2022-07-30 06:35 | ED_ITS ---
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 Associated symptoms: Reports abdominal pain; Deny chills, dysuria or fever(s) Review of Systems Const: Denies: fever(s), chills, body aches or change in appetite Eyes: Denies: blurry vision or eye discomfort ENMT: Denies: throat pain or dental pain Card: Denies: chest pain Resp: Denies: dyspnea GI: Reports: abdominal pain : Denies: dysuria Musc: Reports: back pain Skin/Breast: Denies: rash Neuro: Denies: headache(s) Psych: Denies: depression [place]/Lymph: Denies: easy bruising All/Imm: Denies: urticaria PFSH ED PFSH: Medical History Intellectual disability Family History Mother Diabetes Father Diabetes Social History Smoking and tobacco status: never smoked Alcohol intake: never Adopted: No Caregiver/support person: No Lives independently: No Household members: significant other and children service: No Current occupational status: unemployed History of recent travel: No Sexually active: Yes Current gender identity: Female Female Reproductive History: Date of last menstrual period: 05/01/21 Physical Exam Const: COMMON NORMALS: no acute distress, patient oriented x3 and healthy appearing HENMT: COMMON NORMALS: normocephalic and atraumatic HEAD & SCALP: normocephalic and atraumatic Eye: COMMON NORMALS: Equal, round and reactive pupils present and EOMs intact bilaterally PUPIL: Yes Equal, round and reactive pupils present Neck/C-Spine: COMMON NORMALS: full ROM and supple Chest: COMMONS NORMALS: normal inspection of the chest and normal palpation of entire chest wall Resp: COMMON NORMALS: normal respiratory effort, No retractions, No use of accessory muscles and clear to auscultation bilaterally AUSCULTATION: clear to auscultation bilaterally Cardio: COMMON NORMALS: regular rate, regular rhythm and No murmurs present (Cardio) RATE: regular rate RHYTHM: regular rhythm GI: COMMON NORMALS: Normal to inspection, nondistended, normoactive bowel sounds present, Soft to palpation, non-tender and no masses PALPATION: Yes Soft to palpation Extremity: COMMON NORMALS: normal to inspection and full ROM Neuro: COMMON NORMALS: patient oriented x3, moves all extremities and no focal motor deficits Psych: COMMON NORMALS: mental status grossly normal, Normal thought process present and cooperative THOUGHT PROCESS: Normal thought process present Skin: COMMON NORMALS: no rashes or lesions noted and no wounds GENERAL SKIN EXAM: no rashes or lesions noted Course Vital Signs: Vital signs: Vital Signs Temperature 97.9 F 07/30/22 05:43 Pulse Rate 71 07/30/22 07:10 Respiratory Rate 16 07/30/22 07:10 Blood Pressure 113/6 07/30/22 07:10 Pulse Oximetry 100 07/30/22 07:10 Oxygen Delivery Me thod 07/30/22 07:10 MDM - Back Pain/Injury Medical Decision Making Patient presents with flank pain does have a kidney stone we will place on pain medicine patient is stable for discharge she is to follow-up with urology return if worsening. Labs 07/30/22 06:14 07/30/22 06:14 Radiology Impressions Abdomen/Pelvis CT 07/30/22 06:47 IMPRESSION: Mild left hydronephrosis and proximal hydroureter secondary to a couple adjacent 3 and 4 mm left distal ureteral calculi at the level of the pelvic inlet. Laboratory Results WBC 7.2 10^3/uL (4.0-10.0) 07/30/22 06:14 RBC 4.89 10^6/uL (4.1-5.3) 07/30/22 06:14 Hgb 12.7 g/dL (11.5-15.3) 07/30/22 06:14 Hct 40.4 % (37.0-47.0) 07/30/22 06:14 MCV 82.6 fl (81-99) 07/30/22 06:14 MCH 26.0 pg (28.0-34.0) L 07/30/22 06:14 MCHC 31.4 g/dL (30.0-36.0) 07/30/22 06:14 RDW 13.9 % (12.1-15.1) 07/30/22 06:14 Plt Count 204 10^3/cmm (130-400) 07/30/22 06:14 MPV 11.9 fL (7.4-10.4) H 07/30/22 06:14 Neut % (Auto) 55.8 % 07/30/22 06:14 Lymph % (Auto) 33.4 % 07/30/22 06:14 [place] % (Auto) 7.3 % 07/30/22 06:14 Eos % (Auto) 2.4 % 07/30/22 06:14 Baso % (Auto) 0.8 % 07/30/22 06:14 Neut # (Auto) 4.00 10^3/uL (1.8-7.7) 07/30/22 06:14 Lymph # (Auto) 2.4 10^3/uL (0.8-4.8) 07/30/22 06:14 [place] # (Auto) 0.5 10^3/uL (0.2-0.9) 07/30/22 06:14 Eos # (Auto) 0.2 10^3/uL (0.0-0.8) 07/30/22 06:14 Baso # (Auto) 0.1 10^3/uL (0.0-0.1) 07/30/22 06:14 Nucleated RBC % (auto) 0 % 07/30/22 06:14 Nucleated RBCs # 0.0 /100WBC 07/30/22 06:14 Sodium 136 mmol/L (136-145) 07/30/22 06:14 Potassium 3.7 mmol/L (3.5-5.1) 07/30/22 06:14 Chloride 100 mmol/L (98-107) 07/30/22 06:14 Carbon Dioxide 26 mmol/L (22-29) 07/30/22 06:14 Anion Gap 13.7 (5-19) 07/30/22 06:14 BUN 10 mg/dL (6-20) 07/30/22 06:14 Creatinine 0.6 mg/dL (0.5-0.9) 07/30/22 06:14 GFR Calculation 126.2 mL/min (90-130) 07/30/22 06:14 Glucose 95 mg/dL (65-115) 07/30/22 06:14 Calculated Osmolality 281 mOsm/kg (285-295) L 07/30/22 06:14 Calcium 9.6 mg/dL (8.5-10.5) 07/30/22 06:14 Total Bilirubin 0.3 mg/dL (0.15-1.2) 07/30/22 06:14 AST 13 U/L (0-32) 07/30/22 06:14 ALT 14 U/L (0-33) 07/30/22 06:14 Alkaline Phosphatase 71 U/L (35-105) 07/30/22 06:14 C-Reactive Protein 3.0 mg/L (0.0-4.9) 07/30/22 06:14 Total Protein 7.5 g/dL (6.6-8.7) 07/30/22 06:14 Albumin 4.3 g/dL (3.5-5.2) 07/30/22 06:14 Globulin 3.2 g/dL (1.3-4.6) 07/30/22 06:14 Lipase 39 U/L (13-60) 07/30/22 06:14 HCG, Qual Negative (Negative) 07/30/22 06:14 Urine Color Yellow (Yellow) 07/30/22 06:14 Urine Appearance Clear (CLEAR) 07/30/22 06:14 Urine pH 6.5 (5-7) 07/30/22 06:14 Ur Specific [place] 1.020 (1.005-1.030) 07/30/22 06:14 Urine Protein Neg (Negative) 07/30/22 06:14 Urine Glucose (UA) Norm (Normal) 07/30/22 06:14 Urine Ketones Negative (Negative) 07/30/22 06:14 Urine Blood 3+ (Negative) H 07/30/22 06:14 Urine Nitrate Negative (Negative) 07/30/22 06:14 Urine Bilirubin Neg (Negative) 07/30/22 06:14 Urine Urobilinogen Norm mg/dL (Negative) 07/30/22 06:14 Ur Leukocyte Esterase Negative (Negative) 07/30/22 06:14 Urine RBC 15-25 /hpf (0-2) H 07/30/22 06:14 Urine WBC 0-4 /hpf (0-5) H 07/30/22 06:14 Ur Squamous Epith Cells 0-4 /hpf (0-5) H 07/30/22 06:14 Amorphous Sediment Not Reportable 07/30/22 06:14 Urine Bacteria 1+ /hpf (NONE) H 07/30/22 06:14 Urine Mucus Trace /hpf 07/30/22 06:14 Discharge Plan Discharge Patient Disposition: Home Clinical Impression: Kidney stone Condition: Stable Prescriptions: New hydrocodone-acetaminophen 5-325 mg tablet 1 tab PO Q6H PRN (Reason: pain) Qty: 14 0RF ondansetron 4 mg tablet,disintegrating 4 mg PO Q6H PRN (Reason: nausea and vomiting) Qty: 14 0RF No Action tamsulosin [Flomax] 0.4 mg capsule 0.4 mg PO DAILY ciprofloxacin HCl [Cipro] 500 mg tablet 500 mg PO BID ibuprofen 600 mg tablet 600 mg PO Q6H PRN ondansetron HCl 4 mg tablet 4 mg PO Q8H lactulose [Constulose] 10 gram/15 mL solution 20 g PO BID Discharge Orders: Discharge ED (Routine); Ordered 07/30/22 Ordered By: Mio Tapia Referrals: Adam Bruce MD [Physician] - 1-3 days Discharge Diet: Advance as tolerated Discharge Activity: Resume usual activity Patient Instructions: Kidney Stones (ED), Opioid Safety Stand Alone Forms: Work/School Release Coding Level of Care Code ED 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
[2022-07-30 06:39] LABS: Add Urine Microscopic? YES; Bilirubin Urine Neg (Negative); Blood Urine 3+ (Negative); Glucose Urine UA Norm (Normal); Ketones Urine Negative (Negative); Leukocyte Esterase Urine Negative (Negative); Nitrate Urine Negative (Negative); Protein Urine Neg (Negative); Urine Appearance Clear (CLEAR); Urine Color Yellow (Yellow); Urobilinogen Urine Norm (Negative); pH Urine 6.5 (5-7)
[2022-07-30 06:40] LABS: Add Urine Culture? No; Bacteria Urine 1+ /hpf; Mucus Urine TRACE /hpf; RBC Urine 15-25 /hpf (0-2); Squamous Epithelial Cell Urine 0-4 /hpf (0-5); WBC Urine 0-4 /hpf (0-5)
[2022-07-30 06:41] LABS: HCG, Serum Qual Negative (Negative)
[2022-07-30 06:45] LABS: Alanine Aminotransferase 14 U/L (0-33); Albumin Level 4.3 g/dL (3.5-5.2); Alkaline Phosphatase 71 U/L (35-105); Anion Gap 13.7 (5-19); Aspartate Amino Transferase 13 U/L (0-32); Blood Urea Nitrogen 10 mg/dL (6-20); Calcium 9.6 mg/dL (8.5-10.5); Carbon Dioxide 26 mmol/L (22-29); Chloride 100 mmol/L (98-107); Globulin 3.2 g/dL (1.3-4.6); Glomerular Filtration Rate 126.2 mL/min (90-130); Glucose 95 mg/dL (65-115); Lipase 39 U/L (13-60); Osmolality Calculated 281 mOsm/kg (285-295); Potassium 3.7 mmol/L (3.5-5.1); Sodium 136 mmol/L (136-145); Total Bilirubin 0.3 mg/dL (0.15-1.2); Total Protein 7.5 g/dL (6.6-8.7)
--- NOTE | 2022-07-30 06:47 | CTR_ITS ---
PROCEDURE INFORMATION: Exam: CT Abdomen And Pelvis Without Contrast Exam date and time: 07/30/2022 6:50 AM Age: 22 years old Clinical indication: Abdominal pain; Flank; Left; Additional info: L flank pain TECHNIQUE: Imaging protocol: Computed tomography of the abdomen and pelvis without contrast. Radiation optimization: All CT scans at this facility use at least one of these dose optimization techniques: automated exposure control; mA and/or kV adjustment per patient size (includes targeted exams where dose is matched to clinical indication); or iterative reconstruction. COMPARISON: CT abdomen pelvis w con* [id number] 05/12/2021 12:07 AM RADIATION DOSE METRICS: Total DLP (mGy-cm): 416.83 FINDINGS: Liver: No acute abnormality on noncontrast imaging. Gallbladder and bile ducts: No acute abnormality. No calcified stones. No ductal dilation. Pancreas: No acute abnormality. No ductal dilation. Spleen: No acute abnormality. Adrenal glands: No acute abnormality. No mass. Kidneys and ureters: Mild left hydronephrosis and proximal hydroureter secondary to a couple adjacent 3 and 4 mm left distal ureteral calculi at the level of the pelvic inlet. Grossly normal right kidney. Stomach and bowel: No acute abnormality. No obstruction. No significant bowel thickening. Appendix: No findings to suggest acute appendicitis. Intraperitoneal space: No significant fluid collection. No free air. Vasculature: No acute abnormality. No abdominal aortic aneurysm. Lymph nodes: No enlarged lymph nodes. Urinary bladder: Unremarkable as visualized. No bladder calculi. Reproductive: Tiny normal size bilateral ovarian follicles. Bones/joints: No acute osseous abnormality. No dislocation. Soft tissues: No significant soft tissue abnormalities. CT/CT kidney stone [id number] IMPRESSION: Mild left hydronephrosis and proximal hydroureter secondary to a couple adjacent 3 and 4 mm left distal ureteral calculi at the level of the pelvic inlet.
[2022-07-30 07:10] VITALS: BP 113/6; PULSE 71; RESP 16; O2SAT 100
--- NOTE | 2022-07-30 07:22 | PC.NURSE ---
pt resting in bed, appears comfortable. lung sounds clear, bowel sounds present x4. skin pink/warm/dry. call light within reach of pt. no needs voiced at this time
[2022-07-30 07:35] VITALS: BP 103/68; PULSE 91; RESP 16; O2SAT 100
--- NOTE | 2022-07-31 12:17 | DCPLANNER ---
Addendum entered by Elva Black 08/25/22 13:52: Patient had follow up appointment scheduled with urology - patient did attend appointment. Addendum entered by Elva Black 08/08/22 14:33: Patient has a follow up appointment scheduled for Sunday, August 16, 2022 at 3:[address] Bruce at urology. Clinic will call patient with appointment information. Original Note: mine engineering manager had message to schedule a follow up appointment for patient with urology. mine engineering manager sent patients information to the front office staff at urology. Patients information will be printed and reviewed. Clinic will call patient with appointment information.
== END 2022-07-30 07:47 | disposition home or self-care (01) ==
PROVIDERS: Emergency Medicine; Emergency Provider Emergency Medicine
DX: N20.0 Calculus of kidney (principal)
CPT/HCPCS: 74176; 80053; 81001; 83690; 84703; 85025; 86140; 99284; J7030

== ENCOUNTER 2022-08-16 14:20 | Outpatient (CLI) | payer MEDICARE, MEDICAID, SELFPAY ==
--- NOTE | 2022-08-16 14:32 | XR_ITS ---
WS: [id number] Exam: XR KUB [id number] Date/Time of Exam: 08/16/2022 2:39 PM Reason For Exam: STONES No bowel obstruction or free air. Tiny calcifications are seen over both kidneys and may represent re nal stones. Nonspecific pelvic calcification on the left. Bony structures are intact. No sign of orga n enlargement. XR/XR KUB [id number] IMPRESSION: 1. Tiny calcifications are seen in the region of the kidneys and could represen t renal calculi. Nonspecific left pelvic calcification. 2. No acute finding.
== END 2022-08-16 14:21 | disposition home or self-care (01) ==
PROVIDERS: Visit Provider Urology
DX: N20.0 Calculus of kidney (principal)
CPT/HCPCS: 74018; 81003; 99204

== ENCOUNTER 2022-08-23 05:22 | Day surgery (SDC) | payer MEDICARE, MEDICAID, SELFPAY ==
[2022-08-23] VITALS (19 sets, daily range): BP systolic 90–116; BP diastolic 59–77; PULSE 78–117; RESP 12–24; TEMP 36.2–36.3; O2SAT 88–100
--- NOTE | 2022-08-23 05:51 | XR_ITS ---
WS: [id number] KUB, AP view, 08/23/2022 Clinical Data: Preop left ureteroscopy Comparison: KUB, 08/16/2022 Findings: There is a 0.4 cm calcification in the left pelvis just inferior to the left SI joint which may be a distal ureteral calculus. No abnormal intraabdominal masses or calcifications are seen. There is no dilatated small bowel or ev idence of obstruction. There is a moderate amount of fecal material throughout the colon. There is a decorative item overlyi ng the L4-L5 disc interspace which may be in the umbilicus. XR/XR KUB [id number] Impression: Possible distal left ureteral calculus.
--- NOTE | 2022-08-23 05:51 | SC_ITS ---
WS: [id number] C-arm fluoroscopy for left ureterolgram, 08/23/2022 Clinical Data: Left ureteroscopy Comparison: KUB, 08/23/2022 Findings: Dr. Bruce performed a left ureterogram. There is an intraluminal filling defect in the distal left ureter. SC/C-arm FL for Urology Impression: Left ureterogram.
[2022-08-23 06:16] LABS: OR HCG Qualitative Urine Negative (Negative)
[2022-08-23] MEDS: sodium chloride 0.9% 1,000 ML 30 ML IV (06:28)
--- NOTE | 2022-08-23 06:39 | ANES.PREANE2 ---
Pre-Anesthetic Assessment Height/Weight: Height 1.6 m Weight 58.967 kg Temp Pulse Resp BP Pulse Ox O2 Del Method 97.3 F L 90 18 100/68 100 08/23/22 06:13 08/23/22 06:13 08/23/22 06:13 08/23/22 06:13 08/23/22 06:13 08/23/22 06:13 Preop Diagnosis: Refractory left distal ureteral stones Operation Date: 08/23/22 07:10 Proposed Procedures p CYSTOSCOPY LEFT RETROGRADE URETEROSCOPY LASER STENT 31994 22136 MODIFIER 26, N20.9(Not Applicable) - Adam Bruce MD s Retrograde Pyelogram(Left) - MD marco Terrell Ureteroscopy(Left) - Adam Bruce MD s Laser Lithotripsy(Left) - Adam Bruce MD s Ureteral Stent Placement(Left) - Adam Bruce MD Familial anesthetic complications: Ponv Was Beta Jodi taken within 24 hours: N/A Was Clonidine taken within 24 hours: N/A Last intake: Intake Last Liquid Date 08/22/22 Last Liquid Time 20:00 Last Solid Date 08/22/22 Last Solid Time 20:00 Social No alcohol and No tobacco Exam alert, oriented x 3, clear to auscultation bilaterally and regular rate & rhythm Airway Mallampati: Class III Dentition: full Comments: Comments: poor dentition upon inspection, hx cleft palate repair Anesthetic Plan ASA status: 2 Anesthesia: General Risk of > 500 ml blood loss (7ml/kg in children): No Medications/Allergies Home Medications Medication Instructions Recorded Confirmed Last Taken Type No Known Home Medications 08/22/22 08/22/22 Unknown History Allergies Allergy/AdvReac Type Severity Reaction Status Date / Time amoxicillin Allergy ALGY-Anaphy Verified 08/16/22 14:57 laxis ampicillin Allergy ALGY-Rash Verified 08/16/22 14:57 Penicillins Allergy ALGY-Rash Verified 08/16/22 14:57 Current Medications Generic Name Dose Route Start Last Admin Trade Name Freq PRN Reason Stop Dose Admin Sodium Chloride 1,000 mls @ 30 mls/hr 08/23/22 06:00 08/23/22 06:28 Sodium Chloride 0.9% IV 08/24/22 05:59 30 mls/hr .Q24H ESTHELA Administration PFSH Anesthesia Medical History Intellectual disability Urolithiasis Family History Mother Diabetes Hypertension Insomnia COPD (chronic obstructive pulmonary disease) History of kidney stones Father Diabetes Kidney failure Chronic kidney disease (CKD) Hypertension Social History Smoking and tobacco status: never smoked Alcohol intake: never Adopted: No Caregiver/support person: No Lives independently: No Household members: children Marital status: Single service: No Current occupational status: employed and disabled History of recent travel: No Sexually active: Yes Current gender identity: Female Female Reproductive History Date of last menstrual period: 05/01/21 Data Anesthesia Cardiac Studies: No Data to Display
[2022-08-23] MEDS: scopolamine 1.5 Patch 1 PATCH TRANSDERMA (06:40)
--- NOTE | 2022-08-23 06:47 | P.HPUD_ITS ---
Surgery/Procedure H&P Update DATE OF PROCEDURE: August 23, 2022 DATE H&P PERFORMED: 08/16/22 H&P UPDATE INFORMATION: I have reviewed H&P completed within last 30 days, I have examined patient prior to procedure, No changes to prior documentation and H&P is in [facility] on date indicated PREOP DIAGNOSIS: Refractory left distal ureteral stones PLANNED PROCEDURE: Operation Date: 08/23/22 07:10 Proposed Procedures p CYSTOSCOPY LEFT RETROGRADE URETEROSCOPY LASER STENT 82584 [id number] MODIFIER 26, N20.9(Not Applicable) - Adam Bruce MD s Retrograde Pyelogram(Left) - MD marco Terrell Ureteroscopy(Left) - MD marco Terrell Laser Lithotripsy(Left) - MD marco Terrell Ureteral Stent Placement(Left) - Adam Bruce MD
--- NOTE | 2022-08-23 06:52 | P.OP_ITS ---
Operative Report Date of procedure: August 23, 2022 Pre-op diagnosis: Refractory left distal ureteral stones Post-op diagnosis: Refractory left distal ureteral stones Procedure done: 1. Cystoscopy, LEFT retrograde ureteropyelogram 2. LEFT ureteroscopy, laser lithotripsy, stent Implants: Left ureteral stent: Specimens removed/disposition: Stone fragments: Pathology: Stone fragments: Surgeon: Janis Estimated blood loss: Minimal Urine output: Not measured Complications: None Findings: Anesthesia: General Condition: Stable Disposition: PACU Intraoperative findings: * Stone in the expected position * Completely fragmented with 365 ?m thulium superpulse laser fiber * Stent left indwelling Brief History: She is a 22-year-old white female diagnosed on 07/30/2022 with obstructing left ureteral calculi at the level of the pelvic inlet. Moderate hydronephrosis and no evidence of infection. Chose conservative management initially but failed to progress and was having intermittent symptomatology. Had urologic evaluation in clinic she elected to proceed with intervention due to the size of the stones, degree of symptoms, and failure to progress since diagnosis. She had also been having some symptoms off and on for at least a month before the diagnosis was made. Procedure: After routine preoperative evaluation examination and obtaining of informed consent she was taken to the operating suite on 08/23/2022 where general anesthesia was administered without difficulty after appropriate timeout was performed, SCDs confirmed to be functioning, preoperative antibiotics administered, beta-rahul protocol confirmed. Prepped and draped in usual sterile fashion in dorsolithotomy position paying careful attention to voiding pressure points. 21 Zimbabwean cystoscope with 30 degree lens was introduced into urethra meatus and advanced into the bladder under videoscopy. Bladder was systematically examined. No stone was seen. An 8 Zimbabwean cone-tip catheter was intubated into the left ureteral orifice for LEFT RETROGRADE URETEROPYELOGRAM demonstrating: Normal course and caliber of the ureter distal to the filling defect consistent with a stone seen on prior imaging. The ureter proximal to the stone was dilated. No other filling defects noted. A flexible tip guidewire was then advanced up the left ureter bypassing the stone and curling in the area of the renal pelvis. The distal ureter was dilated with a 15 Zimbabwean 10 cm balloon with no waist. A second guidewire was passed. 7 [place]an offset semirigid ureteroscope was then advanced up the left ureter over the working guidewire. The first wire been secured to the drapes as a safety wire. Stone was encountered in the expected position with clear evidence of impaction. The ureter was quite inflamed but thankfully the stone could be reached. Stone was then fragmented with a 365 ?m thulium superpulse laser fiber into mostly small sand and tiny particles. The scope was passed proximally to the UPJ. No additional stones were seen. A X catch basket was utilized to remove some debris. There was no other remaining fragments of any consequence. The area of impaction was inspected it was decided to leave a stent indwelling. A 6 [place]an by 26 m double-pigtail stent was advanced over the guidewire through the cystoscope into appropriate position as confirmed via fluoroscopy and cystoscopy. The debris that had been dropped into the bladder with ex catch basket was then flushed through the scope. No other stone of consequence were identified in the bladder. The stent was confirmed to be functioning well Tolerated procedure well without complications and was awakened in the operating room and returned to PACU in stable condition. PLANS: 1. Anticipate discharge from outpatient surgery 2. Follow-up in 2 weeks for cystoscopy and stent removal. KUB first
[2022-08-23] MEDS: levofloxacin-dextrose 5 % 500 MG/100 ML PREMIX 100 MG IV (06:57)
[2022-08-23] MEDS: iohexol 300 mg/mL 50 mL Btl (OR ONLY) 10 ML XX (07:24)
--- NOTE | 2022-08-23 08:24 | PC.NURSE ---
patient awake and airway removed @ 1296
[2022-08-23] MEDS: ondansetron 2 mg/ML SDV 2 mL 4 MG IVP (09:21)
--- NOTE | 2022-08-23 12:08 | ANE.PACU2 ---
Inpatient post-anesthesia follow up: Airway intact: Yes Vital signs: Temperature 97.2 F Pulse Rate 84 Respiratory Rate 16 Blood Pressure 105/70 Pulse Oximetry 95 Oxygen Delivery Me thod Nasal Cannula Oxygen Flow Rate 1 Fraction of Inspir ed Oxygen Hydration adequate: Yes Nausea and vomiting: No Pain level: 1 Mental status: Baseline
[2022-08-29 19:20] LABS: Stone Source LEFT URETERAL STONE
== END 2022-08-23 11:36 | disposition home or self-care (01) ==
PROVIDERS: Visit Provider Urology
PROC: 0TJB8ZZ Inspection of Bladder, Via Natural or Artificial Opening Endoscopic (ICD-10-PCS; CPT 52000; principal; 2022-08-23 07:00)
PROC: (CPT 74420; 2022-08-23 07:00)
PROC: 0TJ98ZZ Inspection of Ureter, Via Natural or Artificial Opening Endoscopic (ICD-10-PCS; CPT 52351; 2022-08-23 07:00)
PROC: (CPT 52356; 2022-08-23 07:00)
PROC: (CPT 50605; 2022-08-23 07:00)
DX: N20.1 Calculus of ureter (principal)
CPT/HCPCS: 52356; 74018; 76000; 81025; 82365; 84703; 88300; C2625; J0330; J1956; J2250; J2370; J2405; J2704; J2710; J3010; J3490; J7030

== ENCOUNTER 2022-09-08 07:43 | Outpatient (CLI) | payer MEDICARE, MEDICAID, SELFPAY ==
--- NOTE | 2022-09-08 07:55 | XR_ITS ---
WS: [id number] XR KUB [id number] REASON FOR EXAM: Urolithiasis FINDINGS: Properly positioned left ureteral stent is in place. No calculus is identified overlying the bladder left kidney. There is a small density adjacent to the ureteral stent midway between the left transverse processes of L3 and L4. It is only identified on one of the 2 views. Likely artifactual. XR/XR KUB [id number] IMPRESSION: Properly positioned left ureteral stent. Probable artifact along the left ureteral stent as above.
== END 2022-09-08 07:44 | disposition home or self-care (01) ==
LOC: RAD 07:49
PROVIDERS: Visit Provider Urology
DX: N20.9 Urinary calculus, unspecified (principal); Z96.0 Presence of urogenital implants
CPT/HCPCS: 52310; 74018

== ENCOUNTER → 2022-10-17 10:02 | Outpatient (BNVA) | payer MEDICARE, MEDICAID, SELFPAY | PROVIDERS: PCP Registered Nurse; Visit Provider Registered Nurse | DX: Z20.2 Contact with and (suspected) exposure to infections with a predominantly sexual mode of transmission (principal) | CPT/HCPCS: 87491; 87591; 87661 ==

== ENCOUNTER → 2022-12-25 10:22 | Outpatient (BNVA) | payer MEDICARE, MEDICAID, SELFPAY | PROVIDERS: PCP Registered Nurse; Visit Provider Registered Nurse | DX: N39.0 Urinary tract infection, site not specified (principal); Z20.2 Contact with and (suspected) exposure to infections with a predominantly sexual mode of transmission | CPT/HCPCS: 81000; 87086; 87491; 87591; 87661 ==

== ENCOUNTER 2023-01-04 20:39 | Emergency (ER) | payer MEDICARE, MEDICAID, SELFPAY ==
[2023-01-04 20:43] VITALS: BP 110/75; PULSE 74; RESP 18; TEMP 37; O2SAT 99
[2023-01-04 21:33] LABS: Rapid Strep A Test Negative (Negative)
--- NOTE | 2023-01-04 21:38 | W.ED.URI ---
HPI - URI/Sore Throat General: Chief Complaint: Fever Stated Complaint: Sore throat Time Seen by Provider: 01/04/23 20:58 History of Present Illness: Patient is a 22-year-old female comes to the ED with sore throat. Symptoms have been going on now for the past 4 days. She endorses having a fever and some body aches as well. Denies any cough or nasal drainage or congestion. It hurts to swallow. Denies any trouble breathing. She has not had any fevers today and has not taken any Tylenol or Motrin today before coming to the ED. Associated symptoms: Reports fever(s); Deny abdominal pain, chills, chest pain, diarrhea, headache(s), nasal congestion, nausea or vomiting Review of Systems Const: Reports: fever(s) and body aches; Denies: chills or fatigue Eyes: Denies: change in vision or eye discomfort ENMT: Reports: throat pain and odynophagia; Denies: nasal discharge or nasal congestion Card: Denies: chest pain, palpitations, edema, swelling of feet/ankles, dyspnea on exertion or orthopnea Resp: Denies: dyspnea, productive cough or non-productive cough GI: Denies: abdominal pain, nausea, vomiting, diarrhea, constipation or hematochezia : Denies: flank pain, dysuria or hematuria Musc: Denies: neck pain, back pain or extremity swelling Skin/Breast: Denies: rash or new lesions Neuro: Denies: headache(s), numbness in extremities or weakness in extremities PFS ED PFSH: Medical History Intellectual disability Urolithiasis Family History Mother Diabetes Hypertension Insomnia COPD (chronic obstructive pulmonary disease) History of kidney stones Father Diabetes Kidney failure Chronic kidney disease (CKD) Hypertension Social History Smoking and tobacco status: never smoked Alcohol intake: never Substance/Drug Use: never Adopted: No Caregiver/support person: No Lives independently: No Household members: children Marital status: Single service: No Current occupational status: employed and disabled Sexually active: Yes Do you think of yourself as: Straight/Heterosexual Current gender identity: Female Physical Exam Const: COMMON NORMALS: no acute distress, patient oriented x3, healthy appearing and alert HENMT: COMMON NORMALS: normocephalic HEAD & SCALP: normocephalic MOUTH: Normal oral and palatal mucosa present THROAT: uvula midline and posterior oropharynx abnormal erythema; no exudates Neck/C-Spine: COMMON NORMALS: supple GENERAL: Yes normal visual inspection Resp: COMMON NORMALS: normal respiratory effort, No retractions, No use of accessory muscles and clear to auscultation bilaterally AUSCULTATION: clear to auscultation bilaterally Cardio: COMMON NORMALS: regular rate, regular rhythm, S1 normal heart sound present, S2 normal heart sound present, No gallops present (Cardio), No clicks present (Cardio), No murmurs present (Cardio) and Peripheral pulses 2+ throughout RATE: regular rate RHYTHM: regular rhythm HEART SOUNDS: S1 normal heart sound present and S2 normal heart sound present PERIPHERAL PULSES: Peripheral pulses 2+ throughout GI: COMMON NORMALS: Normal to inspection, nondistended, normoactive bowel sounds present, Soft to palpation, non-tender and no masses PALPATION: Yes Soft to palpation : COMMON NORMALS: Yes no CVA tenderness BLADDER/KIDNEY EXAM: Yes no CVA tenderness Back/Pelvis: COMMON NORMALS: no CVA tenderness Extremity: COMMON NORMALS: normal to inspection Neuro: COMMON NORMALS: patient oriented x3 SENSORIUM/ORIENTATION: Yes alert GAIT: Yes Normal gait present Skin: GENERAL SKIN EXAM: dry skin Course Vital Signs: Vital signs: Vital Signs Temperature 98.6 F 01/04/23 20:43 Pulse Rate 74 01/04/23 20:43 Respiratory Rate 18 01/04/23 20:43 Blood Pressure 110/75 01/04/23 20:43 Pulse Oximetry 99 01/04/23 20:43 Oxygen Delivery Me thod Room Air 01/04/23 20:43 MDM - URI/Sore Throat Medical Decision Making Patient is a 22-year-old female comes to the ED with sore throat. Symptoms have been going on now for the past 4 days. She endorses having a fever and some body aches as well. Denies any cough or nasal drainage or congestion. It hurts to swallow. Denies any trouble breathing. She has not had any fevers today and has not taken any Tylenol or Motrin today before coming to the ED. vitals are stable and patient is afebrile. She appears nontoxic in no acute distress or pain. Posterior oropharynx has some erythema but no exudates seen. Strep test was negative. Patient was stable for discharge home and diagnosed with viral pharyngitis. Told to follow-up with PCP in the next week for reevaluation. Return to ED precautions given. Patient understood agree with plan. Lab Data I reviewed the patient's lab results. Laboratory Results Group A Strep Rapid Negative (Negative) 01/04/23 21:13 Discharge Plan Discharge Patient Disposition: Home Clinical Impression: Viral pharyngitis Condition: Stable Prescriptions: No Action sulfamethoxazole-trimethoprim [Bactrim DS] 800-160 mg tablet 1 tab PO Q12H Discharge Orders: Discharge ED (Routine); Ordered 01/04/23 Ordered By: Tico Abreu Referrals: Ana Lynch spn [Primary Care Provider] - Discharge Diet: Regular Discharge Activity: Increase activity as tolerated Patient Instructions: Pharyngitis (ED) Activity Restrictions/Additional Instructions: Follow-up with medical provider as directed in the next 5 to 7 days for reevaluation. Drink plenty fluids and stay hydrated. Take [id number] Tylenol or Motrin for any pain or fevers. You can take [id number] symptomatic treatment. return to the ER or your medical provider if condition worsens. Please read and understand discharge instructions. Thank you for choosing [facility] for your healthcare needs today. Please realize this is an emergency room and that we are providing you with a medical screening exam and this may not be complete and all inclusive of all the testing and or work up that you may need to determine your ailment or severity of your illness. It is very important that you follow up as instructed or that you return to the Emergency Department should you have concerns or if your condition changes or worsens in any way. Coding Level of Care Code ED Copier Operator for Patria Higgins
== END 2023-01-04 21:53 | disposition home or self-care (01) ==
PROVIDERS: Emergency Medicine; Emergency Provider Physician Assistant
DX: J02.8 Acute pharyngitis due to other specified organisms (principal)
CPT/HCPCS: 87081; 87880; 99283

== ENCOUNTER 2023-03-25 22:34 | Emergency (ER) | payer MEDICARE, MEDICAID, SELFPAY ==
--- NOTE | 2023-03-25 22:54 | ED_ITS ---
Documented by User: RYLIE Rogers 03/26/23 00:33 HPI - Abdominal Pain General: Chief Complaint: Abdominal Pain Stated Complaint: ABD Pain\Diah Time Seen by Provider: 03/25/23 22:52 History of Present Illness: Patient comes in with nausea and abdominal discomfort x5 days. Patient reported diarrhea starting today. Patient appears nontoxic. Patient appears no acute distress. Associated Symptoms: Reports diarrhea and nausea; Denies fever(s) Review of Systems Const: Denies: fever(s) GI: Reports: nausea and diarrhea PFSH ED PFSH: Medical History Intellectual disability Urolithiasis Family History Mother Diabetes Hypertension Insomnia COPD (chronic obstructive pulmonary disease) History of kidney stones Father Diabetes Kidney failure Chronic kidney disease (CKD) Hypertension Social History Smoking and tobacco status: never smoked Alcohol intake: never Substance/Drug Use: never Adopted: No Caregiver/support person: No Lives independently: No Household members: children Marital status: Single service: No Current occupational status: employed and disabled Sexually active: Yes Do you think of yourself as: Straight/Heterosexual Current gender identity: Female Physical Exam Const: COMMON NORMALS: alert HENMT: COMMON NORMALS: normocephalic HEAD & SCALP: normocephalic Neck/C-Spine: COMMON NORMALS: full ROM Resp: COMMON NORMALS: normal respiratory effort and clear to auscultation bilaterally AUSCULTATION: clear to auscultation bilaterally Cardio: COMMON NORMALS: regular rate RATE: regular rate GI: COMMON NORMALS: Soft to palpation AUSCULTATION: Yes normoactive bowel sounds PALPATION: Yes Soft to palpation Extremity: COMMON NORMALS: full ROM Neuro: SENSORIUM/ORIENTATION: Yes alert Skin: COMMON NORMALS: turgor normal GENERAL SKIN EXAM: turgor normal Course Vital Signs: Vital signs: Vital Signs Temperature 98.9 F 03/25/23 23:00 Pulse Rate 103 H 03/26/23 00:47 Respiratory Rate 18 03/26/23 00:47 Blood Pressure 110/80 03/26/23 00:47 Pulse Oximetry 100 03/26/23 00:47 Oxygen Delivery Me thod Room Air 03/25/23 23:07 MDM - Abdominal Pain Medical Decision Making 22-year-old female comes in today with abdominal pain, nausea, and diarrhea. Patient reports symptoms for about 1 week with diarrhea starting today. On exam abdomen soft nontender. Skin is warm and dry. Vital signs are normal. Differential diagnosis includes but not limited to urinary tract infection, pr egnancy, gastroenteritis, appendicitis, gallbladder disease. Laboratory values were unremarkable. CT of the abdomen pelvis was unremarkable. Believe the patient probably has a bout of gastroenteritis and is most likely resolving. Give patient some Zofran as needed for nausea recommend follow-up with primary care for further evaluation and treatment. Return to the ER for worsening symptoms. Lab Data 03/25/23 22:59 03/25/23 22:59 Labs/Radiology: Radiology Impressions Abdomen/Pelvis CT 03/25/23 23:21 IMPRESSION: No acute findings. Laboratory Results WBC 6.6 10^3/uL (4.0-10.0) 03/25/23 22:59 RBC 4.95 10^6/uL (4.1-5.3) 03/25/23 22:59 Hgb 12.2 g/dL (11.5-15.3) 03/25/23 22:59 Hct 40.5 % (37.0-47.0) 03/25/23 22:59 MCV 81.8 fl (81-99) 03/25/23 22:59 MCH 24.6 pg (28.0-34.0) L 03/25/23 22:59 MCHC 30.1 g/dL (30.0-36.0) 03/25/23 22:59 RDW 14.7 % (12.1-15.1) 03/25/23 22:59 Plt Count 196 10^3/cmm (130-400) 03/25/23 22:59 MPV 11.8 fL (7.4-10.4) H 03/25/23 22:59 Neut % (Auto) 66.7 % 03/25/23 22:59 Lymph % (Auto) 22.0 % 03/25/23 22:59 [place] % (Auto) 10.2 % 03/25/23 22:59 Eos % (Auto) 0.6 % 03/25/23 22:59 Baso % (Auto) 0.3 % 03/25/23 22:59 Neut # (Auto) 4.37 10^3/uL (1.8-7.7) 03/25/23 22:59 Lymph # (Auto) 1.4 10^3/uL (0.8-4.8) 03/25/23 22:59 [place] # (Auto) 0.7 10^3/uL (0.2-0.9) 03/25/23 22:59 Eos # (Auto) 0.0 10^3/uL (0.0-0.8) 03/25/23 22:59 Baso # (Auto) 0.0 10^3/uL (0.0-0.1) 03/25/23 22:59 Nucleated RBC % (auto) 0 % 03/25/23 22:59 Nucleated RBCs # 0.0 /100WBC 03/25/23 22:59 Sodium 142 mmol/L (136-145) 03/25/23 22:59 Potassium 3.9 mmol/L (3.5-5.1) 03/25/23 22:59 Chloride 105 mmol/L (98-107) 03/25/23 22:59 Carbon Dioxide 25 mmol/L (22-29) 03/25/23 22:59 Anion Gap 15.9 (5-19) 03/25/23 22:59 BUN 12 mg/dL (6-20) 03/25/23 22:59 Creatinine 0.6 mg/dL (0.5-0.9) 03/25/23 22:59 GFR Calculation 126.2 mL/min (90-130) 03/25/23 22:59 Glucose 100 mg/dL (65-115) 03/25/23 22:59 Calculated Osmolality 294 mOsm/kg (285-295) 03/25/23 22:59 Calcium 9.4 mg/dL (8.5-10.5) 03/25/23 22:59 Total Bilirubin 0.4 mg/dL (0.15-1.2) 03/25/23 22:59 AST 17 U/L (0-32) 03/25/23 22:59 ALT 14 U/L (0-33) 03/25/23 22:59 Alkaline Phosphatase 87 U/L (35-105) 03/25/23 22:59 Total Protein 7.4 g/dL (6.6-8.7) 03/25/23 22:59 Albumin 4.4 g/dL (3.5-5.2) 03/25/23 22:59 Globulin 3.0 g/dL (1.3-4.6) 03/25/23 22:59 Lipase 34 U/L (13-60) 03/25/23 22:59 HCG, Qual Negative (Negative) 03/25/23 22:59 Urine Color Yellow (Yellow) 03/25/23 23:08 Urine Appearance Clear (CLEAR) 03/25/23 23:08 Urine pH 5 (5-7) 03/25/23 23:08 Ur Specific [place] 1.030 (1.005-1.030) 03/25/23 23:08 Urine Protein Trace (Negative) 03/25/23 23:08 Urine Glucose (UA) Norm (Normal) 03/25/23 23:08 Urine Ketones 1+ (Negative) H 03/25/23 23:08 Urine Blood Neg (Negative) 03/25/23 23:08 Urine Nitrate Negative (Negative) 03/25/23 23:08 Urine Bilirubin Neg (Negative) 03/25/23 23:08 Urine Urobilinogen 1 mg/dL (Negative) H 03/25/23 23:08 Ur Leukocyte Esterase Trace (Negative) H 03/25/23 23:08 Urine RBC 0-4 /hpf (0-2) H 03/25/23 23:08 Urine WBC 0-4 /hpf (0-5) H 03/25/23 23:08 Ur Squamous Epith Cells 15-25 /hpf (0-5) H 03/25/23 23:08 Calcium Oxalate Crystal 0-4 /hpf H 03/25/23 23:08 Amorphous Sediment Not Reportable 03/25/23 23:08 Urine Bacteria 1+ /hpf (NONE) H 03/25/23 23:08 Urine Mucus 2+ /hpf 03/25/23 23:08 Discharge Plan Discharge Patient Disposition: Home Clinical Impression: Gastroenteritis Condition: Stable Prescriptions: New ondansetron 4 mg tablet,disintegrating 4 mg PO Q8H PRN (Reason: nausea and vomiting) Qty: 7 0RF No Action sulfamethoxazole-trimethoprim [Bactrim DS] 800-160 mg tablet 1 tab PO Q12H Discharge Orders: Discharge ED (Routine); Ordered 03/26/23 Ordered By: Óscar Balderas Referrals: Ana Lynch spn [Primary Care Provider] - Discharge Diet: Advance as tolerated Discharge Activity: Increase activity as tolerated Patient Instructions: Gastroenteritis (ED) Activity Restrictions/Additional Instructions: Drink plenty of water and fluids. Use ondansetron as needed for nausea or vomiting. You may use [id number] Imodium as needed for diarrhea. Follow- up with primary care for further evaluation and treatment. Return to ED for worsening symptoms such as uncontrolled abdominal pain, high fever greater than 100.4, or new concerns. Coding Level of Care Code ED Division Plant Engineer for Chg Fwd Documented by User: Cirilo Michaud, 03/26/23 01:41 HPI - Abdominal Pain General: Chief Complaint: Abdominal Pain Stated Complaint: ABD Pain\Diah Time Seen by Provider: 03/25/23 22:52 PFSH ED PFSH: Medical History Intellectual disability Urolithiasis Family History Mother Diabetes Hypertension Insomnia COPD (chronic obstructive pulmonary disease) History of kidney stones Father Diabetes Kidney failure Chronic kidney disease (CKD) Hypertension Social History Smoking and tobacco status: never smoked Alcohol intake: never Substance/Drug Use: never Adopted: No Caregiver/support person: No Lives independently: No Household members: children Marital status: Single service: No Current occupational status: employed and disabled Sexually active: Yes Do you think of yourself as: Straight/Heterosexual Current gender identity: Female Course Vital Signs: Vital signs: Vital Signs Temperature 98.9 F 03/25/23 23:00 Pulse Rate 103 H 03/26/23 00:47 Respiratory Rate 18 03/26/23 00:47 Blood Pressure 110/80 03/26/23 00:47 Pulse Oximetry 100 07/31/23 00:47 Oxygen Delivery Me thod Room Air 03/25/23 23:07 MDM - Abdominal Pain Medical Decision Making 22-year-old female comes in today with abdominal pain, nausea, and diarrhea. Patient reports symptoms for about 1 week with diarrhea starting today. On exam abdomen soft nontender. Skin is warm and dry. Vital signs are normal. Differential diagnosis includes but not limited to urinary tract infection, , gastroenteritis, appendicitis, gallbladder disease. Laboratory values were unremarkable. CT of the abdomen pelvis was unremarkable. Believe the patient probably has a bout of gastroenteritis and is most likely resolving. Give patient some Zofran as needed for nausea recommend follow-up with primary care for further evaluation and treatment. Return to the ER for worsening symptoms. This patient was originally seen by RYLIE Maradiaga.? I agree with his history, evaluation, and treatment. Lab Data 03/25/23 22:59 03/25/23 22:59 Labs/Radiology: Radiology Impressions Abdomen/Pelvis CT 03/25/23 23:21 IMPRESSION: No acute findings. Laboratory Results WBC 6.6 10^3/uL (4.0-10.0) 03/25/23 22:59 RBC 4.95 10^6/uL (4.1-5.3) 03/25/23 22:59 Hgb 12.2 g/dL (11.5-15.3) 03/25/23 22:59 Hct 40.5 % (37.0-47.0) 03/25/23 22:59 MCV 81.8 fl (81-99) 03/25/23 22:59 MCH 24.6 pg (28.0-34.0) L 03/25/23 22:59 MCHC 30.1 g/dL (30.0-36.0) 03/25/23 22:59 RDW 14.7 % (12.1-15.1) 03/25/23 22:59 Plt Count 196 10^3/cmm (130-400) 03/25/23 22:59 MPV 11.8 fL (7.4-10.4) H 03/25/23 22:59 Neut % (Auto) 66.7 % 03/25/23 22:59 Lymph % (Auto) 22.0 % 03/25/23 22:59 [place] % (Auto) 10.2 % 03/25/23 22:59 Eos % (Auto) 0.6 % 03/25/23 22:59 Baso % (Auto) 0.3 % 03/25/23 22:59 Neut # (Auto) 4.37 10^3/uL (1.8-7.7) 03/25/23 22:59 Lymph # (Auto) 1.4 10^3/uL (0.8-4.8) 03/25/23 22:59 [place] # (Auto) 0.7 10^3/uL (0.2-0.9) 03/25/23 22:59 Eos # (Auto) 0.0 10^3/uL (0.0-0.8) 03/25/23 22:59 Baso # (Auto) 0.0 10^3/uL (0.0-0.1) 03/25/23 22:59 Nucleated RBC % (auto) 0 % 03/25/23 22:59 Nucleated RBCs # 0.0 /100WBC 03/25/23 22:59 Sodium 142 mmol/L (136-145) 03/25/23 22:59 Potassium 3.9 mmol/L (3.5-5.1) 03/25/23 22:59 Chloride 105 mmol/L (98-107) 03/25/23 22:59 Carbon Dioxide 25 mmol/L (22-29) 03/25/23 22:59 Anion Gap 15.9 (5-19) 03/25/23 22:59 BUN 12 mg/dL (6-20) 03/25/23 22:59 Creatinine 0.6 mg/dL (0.5-0.9) 03/25/23 22:59 GFR Calculation 126.2 mL/min (90-130) 03/25/23 22:59 Glucose 100 mg/dL (65-115) 03/25/23 22:59 Calculated Osmolality 294 mOsm/kg (285-295) 03/25/23 22:59 Calcium 9.4 mg/dL (8.5-10.5) 03/25/23 22:59 Total Bilirubin 0.4 mg/dL (0.15-1.2) 03/25/23 22:59 AST 17 U/L (0-32) 03/25/23 22:59 ALT 14 U/L (0-33) 03/25/23 22:59 Alkaline Phosphatase 87 U/L (35-105) 03/25/23 22:59 Total Protein 7.4 g/dL (6.6-8.7) 03/25/23 22:59 Albumin 4.4 g/dL (3.5-5.2) 03/25/23 22:59 Globulin 3.0 g/dL (1.3-4.6) 03/25/23 22:59 Lipase 34 U/L (13-60) 03/25/23 22:59 HCG, Qual Negative (Negative) 03/25/23 22:59 Urine Color Yellow (Yellow) 03/25/23 23:08 Urine Appearance Clear (CLEAR) 03/25/23 23:08 Urine pH 5 (5-7) 03/25/23 23:08 Ur Specific [place] 1.030 (1.005-1.030) 03/25/23 23:08 Urine Protein Trace (Negative) 03/25/23 23:08 Urine Glucose (UA) Norm (Normal) 03/25/23 23:08 Urine Ketones 1+ (Negative) H 03/25/23 23:08 Urine Blood Neg (Negative) 03/25/23 23:08 Urine Nitrate Negative (Negative) 03/25/23 23:08 Urine Bilirubin Neg (Negative) 03/25/23 23:08 Urine Urobilinogen 1 mg/dL (Negative) H 03/25/23 23:08 Ur Leukocyte Esterase Trace (Negative) H 03/25/23 23:08 Urine RBC 0-4 /hpf (0-2) H 03/25/23 23:08 Urine WBC 0-4 /hpf (0-5) H 03/25/23 23:08 Ur Squamous Epith Cells 15-25 /hpf (0-5) H 03/25/23 23:08 Calcium Oxalate Crystal 0-4 /hpf H 03/25/23 23:08 Amorphous Sediment Not Reportable 03/25/23 23:08 Urine Bacteria 1+ /hpf (NONE) H 03/25/23 23:08 Urine Mucus 2+ /hpf 03/25/23 23:08 Discharge Plan Discharge Patient Disposition: Home Clinical Impression: Gastroenteritis Condition: Stable Prescriptions: New ondansetron 4 mg tablet,disintegrating 4 mg PO Q8H PRN (Reason: nausea and vomiting) Qty: 7 0RF No Action sulfamethoxazole-trimethoprim [Bactrim DS] 800-160 mg tablet 1 tab PO Q12H Discharge Orders: Discharge ED (Routine); Ordered 03/26/23 Ordered By: Óscar Balderas Referrals: Ana Lynch spn [Primary Care Provider] - Discharge Diet: Advance as tolerated Discharge Activity: Increase activity as tolerated Patient Instructions: Gastroenteritis (ED) Activity Restrictions/Additional Instructions: Drink plenty of water and fluids. Use ondansetron as needed for nausea or vomiting. You may use [id number]-[id number]-givmgpt Imodium as needed for diarrhea. Follow- up with primary care for further evaluation and treatment. Return to ED for worsening symptoms such as uncontrolled abdominal pain, high fever greater than 100.4, or new concerns. Coding Level of Care Code ED Division Plant Engineer for Patria Higgins
[2023-03-25 23:00] VITALS: BP 111/81; PULSE 96; RESP 18; TEMP 37.2; O2SAT 100; BMI 26.5
[2023-03-25 23:07] VITALS: BP 111/81; PULSE 96; RESP 16; O2SAT 100
[2023-03-25 23:10] LABS: Basophils % 0.3 %; Eosinophils % 0.6 %; Hematocrit 40.5 % (37.0-47.0); Hemoglobin 12.2 g/dL (11.5-15.3); Lymphocytes # 1.4 10^3/uL (0.8-4.8); Mean Corpuscular HGB Conc 30.1 g/dL (30.0-36.0); Mean Corpuscular Hemoglobin 24.6 pg (28.0-34.0); Mean Corpuscular Volume 81.8 fl (81-99); Mean Platelet Volume 11.8 fL (7.4-10.4); Monocytes # 0.7 10^3/uL (0.2-0.9); Monocytes % 10.2 %; Neutrophils # 4.37 10^3/uL (1.8-7.7); Neutrophils % 66.7 %; Nucleated Red Blood Cells % 0 %; Platelet Count 196 10^3/cmm (130-400); Red Blood Count 4.95 10^6/uL (4.1-5.3); Red Cell Distribution Width 14.7 % (12.1-15.1); White Blood Count 6.6 10^3/uL (4.0-10.0)
[2023-03-25 23:18] LABS: HCG, Serum Qual Negative (Negative)
--- NOTE | 2023-03-25 23:21 | CTR_ITS ---
PROCEDURE INFORMATION: Exam: CT Abdomen And Pelvis With Contrast Exam date and time: 03/25/2023 11:38 PM Age: 22 years old Clinical indication: Abdominal pain; Generalized; Prior surgery; Surgery date: 6+ months; Surgery type: Csection; Patient HX: Diffuse abd pain with diarrhea; Additional info: Abd pain, diarrhea TECHNIQUE: Imaging protocol: Computed tomography of the abdomen and pelvis with contrast. Radiation optimization: All CT scans at this facility use at least one of these dose optimization techniques: automated exposure control; mA and/or kV adjustment per patient size (includes targeted exams where dose is matched to clinical indication); or iterative reconstruction. Contrast material: OMNI 350; Contrast volume: 100 ml; Contrast route: INTRAVENOUS (IV); REPORTING DATA: Count of CT and Cardiac NM exams in prior 12 months: This patient has received [address] and 0 known cardiac nuclear medicine studies in the 12 months prior to the current study. COMPARISON: CT kidney stone [id number] 07/30/2022 6:50 AM RADIATION DOSE METRICS: Total DLP (mGy-cm): 397.56 FINDINGS: Liver: Unremarkable. Gallbladder and bile ducts: Unremarkable. Pancreas: Unremarkable. Spleen: Unremarkable. Adrenal glands: Unremarkable. Kidneys and ureters: Unremarkable. No hydronephrosis. Stomach and bowel: Unremarkable. No bowel obstruction. Appendix: No evidence of appendicitis. Intraperitoneal space: Unremarkable. Vasculature: Unremarkable. Lymph nodes: Unremarkable. Urinary bladder: Unremarkable as visualized. Reproductive: Unremarkable as visualized. Bones/joints: No acute osseous abnormality. Soft tissues: section scar within the lower abdominal wall. CT/CT abdomen pelvis w con* [id number] IMPRESSION: No acute findings.
[2023-03-25 23:27] LABS: Alanine Aminotransferase 14 U/L (0-33); Albumin Level 4.4 g/dL (3.5-5.2); Alkaline Phosphatase 87 U/L (35-105); Anion Gap 15.9 (5-19); Aspartate Amino Transferase 17 U/L (0-32); Blood Urea Nitrogen 12 mg/dL (6-20); Calcium 9.4 mg/dL (8.5-10.5); Carbon Dioxide 25 mmol/L (22-29); Chloride 105 mmol/L (98-107); Glomerular Filtration Rate 126.2 mL/min (90-130); Glucose 100 mg/dL (65-115); Lipase 34 U/L (13-60); Osmolality Calculated 294 mOsm/kg (285-295); Potassium 3.9 mmol/L (3.5-5.1); Sodium 142 mmol/L (136-145); Total Bilirubin 0.4 mg/dL (0.15-1.2); Total Protein 7.4 g/dL (6.6-8.7)
[2023-03-25] MEDS: iohexol 350 mg/mL 500 mL Btl (per mL) IV (23:40)
[2023-03-25 23:43] LABS: Bilirubin Urine Neg (Negative); Blood Urine Neg (Negative); Glucose Urine UA Norm (Normal); Ketones Urine 1+ (Negative); Leukocyte Esterase Urine Trace (Negative); Nitrate Urine Negative (Negative); Protein Urine Trace (Negative); Urine Appearance Clear (CLEAR); Urine Color Yellow (Yellow); Urobilinogen Urine 1 mg/dL (Negative); pH Urine 5 (5-7)
[2023-03-25 23:44] LABS: Add Urine Microscopic? YES
[2023-03-25 23:45] LABS: Bacteria Urine 1+ /hpf; Calcium Oxalate Crystals Urine 0-4 /hpf; Mucus Urine 2+ /hpf; RBC Urine 0-4 /hpf (0-2); Squamous Epithelial Cell Urine 15-25 /hpf (0-5); WBC Urine 0-4 /hpf (0-5)
[2023-03-26] MEDS: sodium chloride 0.9% 1,000 ML 999 ML IV (00:01)
[2023-03-26 00:47] VITALS: BP 110/80; PULSE 103; RESP 18; O2SAT 100
== END 2023-03-26 00:53 | disposition home or self-care (01) ==
PROVIDERS: Emergency Provider Nurse Practitioner Family
DX: K52.9 Noninfective gastroenteritis and colitis, unspecified (principal)
CPT/HCPCS: 36415; 74177; 80053; 81001; 83690; 84703; 85025; 96360; 99285; J7030; Q9967

== ENCOUNTER → 2023-05-07 11:25 | Outpatient (BNVA) | payer MEDICARE, MEDICAID, SELFPAY | PROVIDERS: Visit Provider Nurse Practitioner | DX: R05.9 Cough, unspecified (principal) | CPT/HCPCS: 87426 ==

== ENCOUNTER 2023-10-03 00:21 | Emergency (ER) | payer OTHER, MEDICAID, SELFPAY ==
[2023-10-03 00:26] VITALS: BP 99/74; PULSE 93; RESP 16; TEMP 36.8; O2SAT 99; BMI 25.0
--- NOTE | 2023-10-03 00:26 | XRR_ITS ---
PROCEDURE INFORMATION: Exam: XR Chest Exam date and time: 10/03/2023 12:44 AM Age: 23 years old Clinical indication: Dyspnea; Additional info: Chest pain, shortness of breath TECHNIQUE: Imaging protocol: Radiologic exam of the chest. Views: 1 view. COMPARISON: CT abdomen pelvis w con* [id number] 03/25/2023 11:38 PM FINDINGS: Lungs: Unremarkable. No consolidation. Pleural spaces: Unremarkable. No pleural effusion. No pneumothorax. Heart/Mediastinum: Unremarkable. No cardiomegaly. Bones/joints: Unremarkable. XR/XR chest 1V portable [id number] IMPRESSION: No acute findings.
--- NOTE | 2023-10-03 00:28 | ED_ITS ---
HPI - SOB/Dyspnea 2 General: Chief Complaint: Shortness of Breath/Dyspnea Stated Complaint: SOB Time Seen by Provider: 10/03/23 00:23 History of Present Illness: HPI Narrative: Patient stated her cleft palate opened up now she is having problems eating and drinking. Patient says she feels like she cannot catch her breath. Patient says she is been having intermittent chest pain tonight. Patient has had some nausea. Denies any vomiting abdominal pain fever chills. Patient does states she has an appointment with her cleft palate DrBrigid In 3 days. Review of Systems 2 General: Reports: 10 or more systems reviewed and unremarkable except in HPI and below PFSH ED 2 PFSH: Medical History Urolithiasis Intellectual disability Family History Mother Diabetes Hypertension Insomnia COPD (chronic obstructive pulmonary disease) History of kidney stones Father Diabetes Kidney failure Chronic kidney disease (CKD) Hypertension Social History Smoking and tobacco/nicotine status: never used tobacco/nicotine Alcohol intake: never Substance/Drug Use: never Adopted: No Caregiver/support person: No Lives independently: No Household members: children Marital status: Single service: No Current occupational status: employed and disabled Sexually active: Yes Do you think of yourself as: Straight/Heterosexual Current gender identity: Female Physical Exam 2 Const: COMMON NORMALS: no acute distress, average body habitus, patient oriented x3, no limitations, healthy appearing, alert and well nourished Neck/C-Spine: COMMON NORMALS: no JVD Chest: COMMONS NORMALS: normal inspection of the chest and normal palpation of entire chest wall Resp: COMMON NORMALS: normal respiratory effort, No retractions, No use of accessory muscles and clear to auscultation bilaterally AUSCULTATION: clear to auscultation bilaterally Cardio: COMMON NORMALS: no JVD, regular rate, regular rhythm, S1 normal heart sound present, S2 normal heart sound present, No gallops present (Cardio), No clicks present (Cardio), No murmurs present (Cardio) and No rub (Cardio) R ATE: regular rate RHYTHM: regular rhythm HEART SOUNDS: S1 normal heart sound present and S2 normal heart sound present GI: COMMON NORMALS: Normal to inspection, nondistended, normoactive bowel sounds present, Soft to palpation, non-tender, No hepatosplenomegaly present and no masses PALPATION: Yes Soft to palpation and Yes No hepatosplenomegaly present Neuro: COMMON NORMALS: patient oriented x3 SENSORIUM/ORIENTATION: Yes alert Course 2 Vital Signs: Vital signs: Vital Signs Temperature 98.3 F 10/03/23 03:47 Pulse Rate 93 10/03/23 03:47 Respiratory Rate 16 10/03/23 03:47 Blood Pressure 99/74 10/03/23 03:47 Pulse Oximetry 99 10/03/23 03:47 Oxygen Delivery Me thod Room Air 10/03/23 00:26 MDM - SOB/Dyspnea Medical Decision Making Patient presented with shortness of breath and intermittent chest pain. Patient was worked up in a standard chest pain fashion with labs serial EKGs and serial enzymes and chest x-ray. All of which was essentially benign. Patient's remained chest pain-free and her O2 sat on room air remained in the upper 90s. Patient be discharged home to follow-up with her PCP on an as-needed basis. Differential Diagnosis Unlikely acute exacerbation of chronic obstructive airways disease, congestive heart failure, community acquired pneumonia, asthma with exacerbation or pulmonary embolism Medical Records I reviewed the patient's medical records. Lab Data I reviewed the patient's lab results. 10/03/23 00:44 10/03/23 00:44 Labs/Radiology: Radiology Impressions Chest X-Ray 10/03/23 00:26 IMPRESSION: No acute findings. Laboratory Results WBC 9.69 10^3/uL (3.29-11.43) 10/03/23 00:44 RBC 4.12 10^6/uL (3.85-5.65) 10/03/23 00:44 Hgb 11.50 g/dL (11.27-16.99) 10/03/23 00:44 Hct 35.1 % (36-47) L 10/03/23 00:44 MCV 85.2 fl (85-98) 10/03/23 00:44 MCH 27.9 pg (27-33) 10/03/23 00:44 MCHC 32.8 g/dL (30-55) 10/03/23 00:44 RDW 12.8 % (12.1-15.1) 10/03/23 00:44 Plt Count 183 10^3/cmm (157-399) 10/03/23 00:44 MPV 11.2 fL (7.4-10.4) H 10/03/23 00:44 Neut % (Auto) 64.0 % 10/03/23 00:44 Lymph % (Auto) 25.4 % 10/03/23 00:44 [place] % (Auto) 7.7 % 10/03/23 00:44 Eos % (Auto) 2.3 % 10/03/23 00:44 Baso % (Auto) 0.3 % 10/03/23 00:44 Neut # (Auto) 6.20 10^3/uL (1.8-7.7) 10/03/23 00:44 Lymph # (Auto) 2.5 10^3/uL (0.8-4.8) 10/03/23 00:44 [place] # (Auto) 0.8 10^3/uL (0.2-0.9) 10/03/23 00:44 Eos # (Auto) 0.2 10^3/uL (0.0-0.8) 10/03/23 00:44 Baso # (Auto) 0.0 10^3/uL (0.0-0.1) 10/03/23 00:44 Nucleated RBC % (auto) 0 % 10/03/23 00:44 Nucleated RBCs # 0.0 /100WBC 10/03/23 00:44 Sodium 136 mmol/L (136-145) 10/03/23 00:44 Potassium 3.7 mmol/L (3.5-5.1) 10/03/23 00:44 Chloride 101 mmol/L (98-107) 10/03/23 00:44 Carbon Dioxide 22 mmol/L (22-29) 10/03/23 00:44 Anion Gap 16.7 (5-19) 10/03/23 00:44 BUN 11 mg/dL (6-20) 10/03/23 00:44 Creatinine 0.5 mg/dL (0.5-0.9) 10/03/23 00:44 GFR Calculation 154.3 mL/min (90-130) H 10/03/23 00:44 Glucose 111 mg/dL (65-115) 10/03/23 00:44 Calculated Osmolality 282 mOsm/kg (285-295) L 10/03/23 00:44 Calcium 8.9 mg/dL (8.5-10.5) 10/03/23 00:44 Total Bilirubin 0.2 mg/dL (0.15-1.2) 10/03/23 00:44 AST 15 U/L (0-32) 10/03/23 00:44 ALT 19 U/L (0-33) 10/03/23 00:44 Alkaline Phosphatase 78 U/L (35-105) 10/03/23 00:44 Troponin T Baseline < 6 ng/L (0-10) 10/03/23 00:44 Troponin T 120 Minute 6.00 ng/L (0-10) 10/03/23 02:41 Delta Troponin T 0.06553 ABS# (0-10) 10/03/23 02:41 Total Protein 6.9 g/dL (6.6-8.7) 10/03/23 00:44 Albumin 4.0 g/dL (3.5-5.2) 10/03/23 00:44 Globulin 2.9 g/dL (1.3-4.6) 10/03/23 00:44 All radiology interpretation(s) finalized by discharge EKG Data EKG 1: I personally reviewed and interpreted this EKG as follows: EKG Interpretation Date: 10/03/23 EKG interpretation time: 00:40 Prior EKG tracings: not available for review Interpretation: EKG showed ventricular rate 94 beats minute, [place] interval 161, QRS duration 87, QTc of 412, sinus rhythm, nonspecific T wave abnormality Discharge Plan Discharge Patient Disposition: Home Clinical Impression: Atypical chest pain, Shortness of breath Prescriptions: No Action fluoxetine 20 mg/5 mL (4 mg/mL) solution 10 mg PO DAILY 30 Days Qty: 75 0RF Discharge Orders: Discharge ED (Routine); Ordered 10/03/23 Ordered By: Joe Lorenzo Referrals: Carlos Alas FNP [Primary Care Provider] - 1 week Patient Instructions: Noncardiac Chest Pain (ED), Shortness of Breath (ED) Activity Restrictions/Additional Instructions: Your evaluation in the ER that included lab work EKGs and chest x-rays was essentially unremarkable. It did not show any cause of your chest pain or shortness of breath. Is felt to be noncardiac in nature. Please follow-up with your family practice physician for further evaluation and treatment in the next 7 days. Coding Level of Care Code ED Alumni Relations Coordinator for Patria Higgins
--- NOTE | 2023-10-03 00:40 | ECG_ITS ---
[facility] Test Date: 2023-10-03 Pat Name: Rupinder Boyer Department: Room: Gender: Female Event Decorator: : 2000 Requested By: Joe Lorenzo Order Number: [id number] Nico MD: León Jane M.D. Measurements Intervals [place] Rate: 94 P: 71 [place]: 161 QRS: 68 QRSD: 87 T: 44 QT: 361 QTc: 451 Interpretive Statements SINUS RHYTHM NONSPECIFIC T-WAVE ABNORMALITY No previous ECG available for comparison Electronically Signed On 10-03-2023 7:18:16 NARCOTICS DETECTIVE by León Jane M.D. [id number]
[2023-10-03 00:48] LABS: Basophils % 0.3 %; Eosinophils # 0.2 10^3/uL (0.0-0.8); Eosinophils % 2.3 %; Hematocrit 35.1 % (36-47); Lymphocytes # 2.5 10^3/uL (0.8-4.8); Lymphocytes % 25.4 %; Mean Corpuscular HGB Conc 32.8 g/dL (30-55); Mean Corpuscular Hemoglobin 27.9 pg (27-33); Mean Corpuscular Volume 85.2 fl (85-98); Mean Platelet Volume 11.2 fL (7.4-10.4); Monocytes # 0.8 10^3/uL (0.2-0.9); Monocytes % 7.7 %; Nucleated Red Blood Cells % 0 %; Platelet Count 183 10^3/cmm (157-399); Red Blood Count 4.12 10^6/uL (3.85-5.65); Red Cell Distribution Width 12.8 % (12.1-15.1); White Blood Count 9.69 10^3/uL (3.29-11.43)
[2023-10-03 01:11] LABS: Troponin(5th) Baseline < 6 ng/L (0-10)
[2023-10-03 01:14] LABS: Alanine Aminotransferase 19 U/L (0-33); Alkaline Phosphatase 78 U/L (35-105); Anion Gap 16.7 (5-19); Aspartate Amino Transferase 15 U/L (0-32); Blood Urea Nitrogen 11 mg/dL (6-20); Calcium 8.9 mg/dL (8.5-10.5); Carbon Dioxide 22 mmol/L (22-29); Chloride 101 mmol/L (98-107); Globulin 2.9 g/dL (1.3-4.6); Glomerular Filtration Rate 154.3 mL/min (90-130); Glucose 111 mg/dL (65-115); Osmolality Calculated 282 mOsm/kg (285-295); Potassium 3.7 mmol/L (3.5-5.1); Sodium 136 mmol/L (136-145); Total Bilirubin 0.2 mg/dL (0.15-1.2); Total Protein 6.9 g/dL (6.6-8.7)
--- NOTE | 2023-10-03 02:27 | ECG_ITS ---
[facility] Test Date: 2023-10-03 Pat Name: Rupinder Boyer Department: Room: Gender: Female Hospital Fellow: : 2000 Requested By: Joe Lorenzo Order Number: [id number] Nico MD: León Jane M.D. Measurements Intervals [place] Rate: 92 P: 70 CT: 166 QRS: 71 QRSD: 85 T: 49 QT: 360 QTc: 446 Interpretive Statements SINUS RHYTHM NONSPECIFIC T-WAVE ABNORMALITY Compared to ECG 10/03/2023 00:40:13 No significant changes Electronically Signed On 10-03-2023 7:19:11 YOUTH SUPPORT WORKER by León Jane M.D. [id number]
[2023-10-03 03:11] LABS: Troponin 5 2HR Delta 0.00001 ABS# (0-10)
[2023-10-03 03:47] VITALS: BP 99/74; PULSE 93; RESP 16; TEMP 36.8; O2SAT 99
== END 2023-10-03 03:48 | disposition home or self-care (01) ==
PROVIDERS: Emergency Provider Emergency Medicine; PCP Registered Nurse
DX: R07.89 Other chest pain (principal); R06.02 Shortness of breath
CPT/HCPCS: 71045; 80053; 84484; 85025; 93005; 99285

== ENCOUNTER 2023-10-23 15:33 | Emergency (ER) | payer OTHER, MEDICAID, SELFPAY ==
[2023-10-23 15:48] VITALS: BP 97/64; PULSE 84; RESP 14; TEMP 36.7; O2SAT 100; BMI 24.7
[2023-10-23 16:30] LABS: Basophils % 0.3 %; Eosinophils # 0.1 10^3/uL (0.0-0.8); Eosinophils % 0.5 %; Hematocrit 40.7 % (36-47); Lymphocytes # 1.8 10^3/uL (0.8-4.8); Lymphocytes % 17.2 %; Mean Corpuscular HGB Conc 31.7 g/dL (30-55); Mean Corpuscular Hemoglobin 27.4 pg (27-33); Mean Corpuscular Volume 86.6 fl (85-98); Mean Platelet Volume 12.1 fL (7.4-10.4); Monocytes # 0.4 10^3/uL (0.2-0.9); Neutrophils # 8.12 10^3/uL (1.8-7.7); Neutrophils % 77.7 %; Nucleated Red Blood Cells % 0 %; Platelet Count 183 10^3/cmm (157-399); Red Cell Distribution Width 13.4 % (12.1-15.1); White Blood Count 10.45 10^3/uL (3.29-11.43)
[2023-10-23 17:03] LABS: Alanine Aminotransferase 19 U/L (0-33); Albumin Level 4.1 g/dL (3.5-5.2); Alkaline Phosphatase 63 U/L (35-105); Anion Gap 16.8 (5-19); Aspartate Amino Transferase 16 U/L (0-32); Blood Urea Nitrogen 11 mg/dL (6-20); Carbon Dioxide 21 mmol/L (22-29); Chloride 101 mmol/L (98-107); Creatinine Clr Calc Pharmacy 158.3659; Globulin 3.4 g/dL (1.3-4.6); Glomerular Filtration Rate 154.3 mL/min (90-130); Glucose 126 mg/dL (65-115); Lipase 38 U/L (13-60); Osmolality Calculated 281 mOsm/kg (285-295); Potassium 3.8 mmol/L (3.5-5.1); Sodium 135 mmol/L (136-145); Total Bilirubin 0.2 mg/dL (0.15-1.2); Total Protein 7.5 g/dL (6.6-8.7)
[2023-10-23 17:23] VITALS: BP 106/71; PULSE 100; O2SAT 99
--- NOTE | 2023-10-23 17:39 | USR_ITS ---
PROCEDURE INFORMATION: Exam: US , Limited Exam date and time: 10/23/2023 6:02 PM Age: 23 years old Clinical indication: Lmp or gestational age (in weeks): 7w3d; Antepartum complications; Other: N+v, pelvic discomfort, no vag bleed; ; Prior surgery; Surgery date: 6+ months; Surgery type: First by csection; Additional info: Pelvic pain 6 weeks gestation beta-hcg 152 k LABS AND CLINICAL REPORTS: Serum Choriogonadotropin (HCG): 867148 mIU/mL Last menstrual period start date: 09/10/2023 Gestational age (Established): 6 w 1 d Estimated due date (Established): 06/16/2024 TECHNIQUE: Imaging protocol: Real-time ultrasound of the maternal uterus with image documentation. Exam focused on the clinical indication. COMPARISON: CT abdomen pelvis w con* [id number] 03/25/2023 11:38 PM FINDINGS: Gestation: Single viable IUP heart rate: 152 bpm. There is an intrauterine gestational sac that contains a pole with a heart rate of 152 bpm. Embryo measurements give a gestational age of 7 weeks 3 days and an GIANLUCA of 06/16/2024. No subchorionic hemorrhage. Cervical os is closed and amniotic fluid volume is normal. Amniotic fluid: Amniotic fluid volume is normal. BIOMETRY: Gestational age (AUA): 7 w 3 d Estimated due date (AUA): 06/16/2024 MATERNAL: Uterus: Uterus measures 10.5 cm x 6.1 cm x 5.4 cm. Right ovary/adnexa: Right ovary measures 2.8 cm x 2.3 cm x 2.7 cm. Right ovarian volume is 8.9 mL. Left ovary/adnexa: Left ovary measures 3 cm x 3 cm x 2.5 cm. Left ovarian volume is 12.5 mL. US/US OB limited [id number] IMPRESSION: Unremarkable viable IUP at 7 weeks 3 days
--- NOTE | 2023-10-23 17:41 | W.ED.GENADLT ---
Documented by User: Kirby Barbosa DO 10/25/23 06:49 HPI - General Adult General: Chief complaint: General Medical Stated complaint: abd pain Time Seen by Provider: 10/23/23 17:15 Source: patient Mode of arrival: ambulatory History of Present Illness: 23-year-old female G2, P1 at approximately 6 weeks gestation based off an LMP of September 10, 2023. Presents emergency room complaining of abdominal pain nausea and vomiting. She has not had any vaginal bleeding. She has been generally feeling unwell reports her pain level 7 out of 10. She denies any dysuria urgency or frequency denies any hematuria. Onset (ago): day(s) Location: pelvis Severity: severe Quality: sharp Pain Consistency: constant Relieving factors: none Exacerbating factors: none Associated symptoms: Deny chest pain, confusion, cough, diaphoresis, decreased appetite, dyspnea, fevers/chills, headache(s), malaise, nausea, rash, palpitations, seizures, short of breath, syncope, vomiting or weakness Review of Systems Const: Denies: malaise or diaphoresis Card: Denies: chest pain, palpitations or syncope Resp: Denies: dyspnea GI: Denies: nausea or vomiting : Denies: dysuria, urinary frequency or urinary urgency Musc: Denies: neck pain or back pain Skin/Breast: Denies: rash Neuro: Denies: headache(s) or confusion PFSH ED PFSH: Medical History Urolithiasis Intellectual disability Family History Mother Diabetes Hypertension Insomnia COPD (chronic obstructive pulmonary disease) History of kidney stones Father Diabetes Kidney failure Chronic kidney disease (CKD) Hypertension Social History Smoking and tobacco/nicotine status: never used tobacco/nicotine Alcohol intake: never Substance/Drug Use: never Adopted: No Caregiver/support person: No Lives independently: No Household members: children Marital status: Single service: No Current occupational status: employed and disabled Sexually active: Yes Do you think of yourself as: Straight/Heterosexual Current gender identity: Female Physical Exam Const: COMMON NORMALS: no acute distress GENERAL APPEARANCE: cooperative and comfortable ORIENTATION/CONSCIOUSNESS: Yes awake, Yes oriented to person, Yes oriented to place and Yes oriented to time HENMT: COMMON NORMALS: normocephalic, atraumatic and hearing grossly normal bilaterally HEAD & SCALP: normocephalic and atraumatic Resp: COMMON NORMALS: normal respiratory effort, No retractions, No use of accessory muscles and clear to auscultation bilaterally AUSCULTATION: clear to auscultation bilaterally Cardio: COMMON NORMALS: regular rate, regular rhythm and No murmurs present (Cardio) RATE: regular rate RHYTHM: regular rhythm GI: COMMON NORMALS: Soft to palpation and No hepatosplenomegaly present AUSCULTATION: Yes normoactive bowel sounds PALPATION: Yes Soft to palpation, No Tenderness to palpation present (GI), No Guarding due to palpation present (GI) and Yes No hepatosplenomegaly present Extremity: COMMON NORMALS: normal to inspection, capillary refill normal, no clubbing, cyanosis or edema, no calf tenderness and no pedal edema Neuro: SENSORIUM/ORIENTATION: Yes oriented to person, Yes oriented to place and Yes oriented to time Skin: COMMON NORMALS: no rashes or lesions noted GENERAL SKIN EXAM: no rashes or lesions noted Course Vital Signs: Vital signs: Vital Signs Temperature 98.0 F 10/23/23 15:48 Pulse Rate 89 10/23/23 18:57 Respiratory Rate 16 10/23/23 18:57 Blood Pressure 103/66 10/23/23 18:57 Pulse Oximetry 97 10/23/23 18:57 Oxygen Delivery Me thod Room Air 10/23/23 17:23 MDM - General Adult Medical Decision Making Beta-hCG 150,000+. Ultrasound pending to confirm intrauterine . Care signed out to Dr. Lorenzo at change of shift. See final notes for diagnosis and disposition. Care transferred at shift change. Lab work reviewed physical exam performed OB ultrasound showed intrauterine at 7 weeks 3 days. These results was discussed with the patient. Patient is happy and smiling and will be discharged home to follow-up with her family practice physician and OB. Lab Data 10/23/23 16:16 10/23/23 16:16 Radiology Impressions Obstetrics Ultrasound 10/23/23 17:39 IMPRESSION: Unremarkable viable IUP at 7 weeks 3 days Laboratory Results WBC 10.45 10^3/uL (3.29-11.43) 10/23/23 16:16 RBC 4.70 10^6/uL (3.85-5.65) 10/23/23 16:16 Hgb 12.90 g/dL (11.27-16.99) 10/23/23 16:16 Hct 40.7 % (36-47) 10/23/23 16:16 MCV 86.6 fl (85-98) 10/23/23 16:16 MCH 27.4 pg (27-33) 10/23/23 16:16 MCHC 31.7 g/dL (30-55) 10/23/23 16:16 RDW 13.4 % (12.1-15.1) 10/23/23 16:16 Plt Count 183 10^3/cmm (157-399) 10/23/23 16:16 MPV 12.1 fL (7.4-10.4) H 10/23/23 16:16 Neut % (Auto) 77.7 % 10/23/23 16:16 Lymph % (Auto) 17.2 % 10/23/23 16:16 [place] % (Auto) 4.0 % 10/23/23 16:16 Eos % (Auto) 0.5 % 10/23/23 16:16 Baso % (Auto) 0.3 % 10/23/23 16:16 Neut # (Auto) 8.12 10^3/uL (1.8-7.7) H 10/23/23 16:16 Lymph # (Auto) 1.8 10^3/uL (0.8-4.8) 10/23/23 16:16 [place] # (Auto) 0.4 10^3/uL (0.2-0.9) 10/23/23 16:16 Eos # (Auto) 0.1 10^3/uL (0.0-0.8) 10/23/23 16:16 Baso # (Auto) 0.0 10^3/uL (0.0-0.1) 10/23/23 16:16 Nucleated RBC % (auto) 0 % 10/23/23 16:16 Nucleated RBCs # 0.0 /100WBC 10/23/23 16:16 Sodium 135 mmol/L (136-145) L 10/23/23 16:16 Potassium 3.8 mmol/L (3.5-5.1) 10/23/23 16:16 Chloride 101 mmol/L (98-107) 10/23/23 16:16 Carbon Dioxide 21 mmol/L (22-29) L 10/23/23 16:16 Anion Gap 16.8 (5-19) 10/23/23 16:16 BUN 11 mg/dL (6-20) 10/23/23 16:16 Creatinine 0.5 mg/dL (0.5-0.9) 10/23/23 16:16 GFR Calculation 154.3 mL/min (90-130) H 10/23/23 16:16 Glucose 126 mg/dL (65-115) H 10/23/23 16:16 Calculated Osmolality 281 mOsm/kg (285-295) L 10/23/23 16:16 Calcium 9.0 mg/dL (8.5-10.5) 10/23/23 16:16 Total Bilirubin 0.2 mg/dL (0.15-1.2) 10/23/23 16:16 AST 16 U/L (0-32) 10/23/23 16:16 ALT 19 U/L (0-33) 10/23/23 16:16 Alkaline Phosphatase 63 U/L (35-105) 10/23/23 16:16 Total Protein 7.5 g/dL (6.6-8.7) 10/23/23 16:16 Albumin 4.1 g/dL (3.5-5.2) 10/23/23 16:16 Globulin 3.4 g/dL (1.3-4.6) 10/23/23 16:16 Lipase 38 U/L (13-60) 10/23/23 16:16 Ser , Semi-Qnt 667478.00 mIU/mL 10/23/23 16:16 Urine Color Yellow (Yellow) 10/23/23 17:55 Urine Appearance Clear (CLEAR) 10/23/23 17:55 Urine pH 6 (5-7) 10/23/23 17:55 Ur Specific [place] 1.025 (1.005-1.030) 10/23/23 17:55 Urine Protein Neg (Negative) 10/23/23 17:55 Urine Glucose (UA) Norm (Normal) 10/23/23 17:55 Urine Ketones Negative (Negative) 10/23/23 17:55 Urine Blood Neg (Negative) 10/23/23 17:55 Urine Nitrate Negative (Negative) 10/23/23 17:55 Urine Bilirubin Neg (Negative) 10/23/23 17:55 Urine Urobilinogen Norm mg/dL (Negative) 10/23/23 17:55 Ur Leukocyte Esterase Negative (Negative) 10/23/23 17:55 Blood Type A Positive 10/23/23 16:16 Rho(D) Type Rh positive 10/23/23 16:16 Antibody Screen Negative 10/23/23 16:16 Discharge Plan Discharge Patient Disposition: Home Clinical Impression: Qualifiers: Weeks of gestation: less than 8 weeks Qualified Code(s): Z3A.01 - Less than 8 weeks gestation of Condition: Stable Prescriptions: No Action fluoxetine 20 mg/5 mL (4 mg/mL) solution 10 mg PO DAILY 30 Days Qty: 75 0RF Discharge Orders: Discharge ED (Routine); Ordered 10/23/23 Ordered By: Joe Lorenzo Referrals: Carlos Alas FNP [Primary Care Provider] - 1 week Patient Instructions: (ED) Activity Restrictions/Additional Instructions: Urine was unremarkable. Your ultrasound showed you are approximately 7 weeks and 3 days . Please follow-up with your family practice physician and/or SURVEY RESEARCH ANALYST for further evaluation and treatment. Coding Level of Care Code ED Distribution Center Assistant for Chg Fwd Documented by User: Joe Lorenzo DO 10/24/23 05:45 HPI - General Adult General: Chief complaint: General Medical Stated complaint: abd pain Time Seen by Provider: 10/23/23 17:15 PFSH ED PFSH: Medical History Urolithiasis Intellectual disability Family History Mother Diabetes Hypertension Insomnia COPD (chronic obstructive pulmonary disease) History of kidney stones Father Diabetes Kidney failure Chronic kidney disease (CKD) Hypertension Social History Smoking and tobacco/nicotine status: never used tobacco/nicotine Alcohol intake: never Substance/Drug Use: never Adopted: No Caregiver/support person: No Lives independently: No Household members: children Marital status: Single service: No Current occupational status: employed and disabled Sexually active: Yes Do you think of yourself as: Straight/Heterosexual Current gender identity: Female Course Vital Signs: Vital signs: Vital Signs Temperature 98.0 F 10/23/23 15:48 Pulse Rate 89 10/23/23 18:57 Respiratory Rate 16 10/23/23 18:57 Blood Pressure 103/66 10/23/23 18:57 Pulse Oximetry 97 10/23/23 18:57 Oxygen Delivery Me thod Room Air 10/23/23 17:23 MDM - General Adult Medical Decision Making Care transferred at shift change. Lab work reviewed physical exam performed OB ultrasound showed intrauterine at 7 weeks 3 days. These results was discussed with the patient. Patient is happy and smiling and will be discharged home to follow-up with her family practice physician and OB. Differential Diagnosis Medical Records I reviewed the patient's medical records. Lab Data I reviewed the patient's lab results. 10/23/23 16:16 10/23/23 16:16 Radiology Impressions Obstetrics Ultrasound 10/23/23 17:39 IMPRESSION: Unremarkable viable IUP at 7 weeks 3 days Laboratory Results WBC 10.45 10^3/uL (3.29-11.43) 10/23/23 16:16 RBC 4.70 10^6/uL (3.85-5.65) 10/23/23 16:16 Hgb 12.90 g/dL (11.27-16.99) 10/23/23 16:16 Hct 40.7 % (36-47) 10/23/23 16:16 MCV 86.6 fl (85-98) 10/23/23 16:16 MCH 27.4 pg (27-33) 10/23/23 16:16 MCHC 31.7 g/dL (30-55) 10/23/23 16:16 RDW 13.4 % (12.1-15.1) 10/23/23 16:16 Plt Count 183 10^3/cmm (157-399) 10/23/23 16:16 MPV 12.1 fL (7.4-10.4) H 10/23/23 16:16 Neut % (Auto) 77.7 % 10/23/23 16:16 Lymph % (Auto) 17.2 % 10/23/23 16:16 [place] % (Auto) 4.0 % 10/23/23 16:16 Eos % (Auto) 0.5 % 10/23/23 16:16 Baso % (Auto) 0.3 % 10/23/23 16:16 Neut # (Auto) 8.12 10^3/uL (1.8-7.7) H 10/23/23 16:16 Lymph # (Auto) 1.8 10^3/uL (0.8-4.8) 10/23/23 16:16 [place] # (Auto) 0.4 10^3/uL (0.2-0.9) 10/23/23 16:16 Eos # (Auto) 0.1 10^3/uL (0.0-0.8) 10/23/23 16:16 Baso # (Auto) 0.0 10^3/uL (0.0-0.1) 10/23/23 16:16 Nucleated RBC % (auto) 0 % 10/23/23 16:16 Nucleated RBCs # 0.0 /100WBC 10/23/23 16:16 Sodium 135 mmol/L (136-145) L 10/23/23 16:16 Potassium 3.8 mmol/L (3.5-5.1) 10/23/23 16:16 Chloride 101 mmol/L (98-107) 10/23/23 16:16 Carbon Dioxide 21 mmol/L (22-29) L 10/23/23 16:16 Anion Gap 16.8 (5-19) 10/23/23 16:16 BUN 11 mg/dL (6-20) 10/23/23 16:16 Creatinine 0.5 mg/dL (0.5-0.9) 10/23/23 16:16 GFR Calculation 154.3 mL/min (90-130) H 10/23/23 16:16 Glucose 126 mg/dL (65-115) H 10/23/23 16:16 Calculated Osmolality 281 mOsm/kg (285-295) L 10/23/23 16:16 Calcium 9.0 mg/dL (8.5-10.5) 10/23/23 16:16 Total Bilirubin 0.2 mg/dL (0.15-1.2) 10/23/23 16:16 AST 16 U/L (0-32) 10/23/23 16:16 ALT 19 U/L (0-33) 10/23/23 16:16 Alkaline Phosphatase 63 U/L (35-105) 10/23/23 16:16 Total Protein 7.5 g/dL (6.6-8.7) 10/23/23 16:16 Albumin 4.1 g/dL (3.5-5.2) 10/23/23 16:16 Globulin 3.4 g/dL (1.3-4.6) 10/23/23 16:16 Lipase 38 U/L (13-60) 10/23/23 16:16 Ser , Semi-Qnt 810160.00 mIU/mL 10/23/23 16:16 Urine Color Yellow (Yellow) 10/23/23 17:55 Urine Appearance Clear (CLEAR) 10/23/23 17:55 Urine pH 6 (5-7) 10/23/23 17:55 Ur Specific [place] 1.025 (1.005-1.030) 10/23/23 17:55 Urine Protein Neg (Negative) 10/23/23 17:55 Urine Glucose (UA) Norm (Normal) 10/23/23 17:55 Urine Ketones Negative (Negative) 10/23/23 17:55 Urine Blood Neg (Negative) 10/23/23 17:55 Urine Nitrate Negative (Negative) 10/23/23 17:55 Urine Bilirubin Neg (Negative) 10/23/23 17:55 Urine Urobilinogen Norm mg/dL (Negative) 10/23/23 17:55 Ur Leukocyte Esterase Negative (Negative) 10/23/23 17:55 Blood Type A Positive 10/23/23 16:16 Rho(D) Type Rh positive 10/23/23 16:16 Antibody Screen Negative 10/23/23 16:16 All radiology interpretation(s) finalized by discharge Discharge Plan Discharge Patient Disposition: Home Clinical Impression: Qualifiers: Weeks of gestation: less than 8 weeks Qualified Code(s): Z3A.01 - Less than 8 weeks gestation of Condition: Stable Prescriptions: No Action fluoxetine 20 mg/5 mL (4 mg/mL) solution 10 mg PO DAILY 30 Days Qty: 75 0RF Discharge Orders: Discharge ED (Routine); Ordered 10/23/23 Ordered By: Joe Lorenzo Referrals: Carlos Alas FNP [Primary Care Provider] - 1 week Patient Instructions: (ED) Activity Restrictions/Additional Instructions: Urine was unremarkable. Your ultrasound showed you are approximately 7 weeks and 3 days . Please follow-up with your family practice physician and/or SURVEY RESEARCH ANALYST for further evaluation and treatment. Coding Level of Care Code ED Distribution Center Assistant for Patria Higgins
[2023-10-23 18:29] VITALS: BP 107/67
[2023-10-23 18:31] LABS: Add Urine Microscopic? NO; Charge for UA Resulting for Rev
[2023-10-23 18:48] LABS: Bilirubin Urine Neg (Negative); Blood Urine Neg (Negative); Glucose Urine UA Norm (Normal); Ketones Urine Negative (Negative); Leukocyte Esterase Urine Negative (Negative); Nitrate Urine Negative (Negative); Protein Urine Neg (Negative); Specific Gravity, Urine 1.025 (1.005-1.030); Urine Appearance Clear (CLEAR); Urine Color Yellow (Yellow); Urobilinogen Urine Norm (Negative); pH Urine 6 (5-7)
[2023-10-23 18:57] VITALS: BP 103/66; PULSE 89; RESP 16; O2SAT 97
== END 2023-10-23 19:37 | disposition home or self-care (01) ==
PROVIDERS: Emergency Medicine; Emergency Provider Family Medicine; PCP Registered Nurse
DX: O26.891 Other specified pregnancy related conditions, first trimester (principal); R10.2 Pelvic and perineal pain; R11.2 Nausea with vomiting, unspecified; Z3A.01 Less than 8 weeks gestation of pregnancy
CPT/HCPCS: 36415; 76815; 80053; 81003; 83690; 84702; 85025; 86850; 86900; 99284

== ENCOUNTER → 2023-10-31 08:21 | Outpatient (BNVA) | payer OTHER, MEDICAID, SELFPAY | PROVIDERS: PCP Registered Nurse; Visit Provider Nurse Practitioner Women's Health | DX: N92.6 Irregular menstruation, unspecified (principal) | CPT/HCPCS: 81025 ==

== ENCOUNTER → 2023-11-13 12:19 | Outpatient (BNVA) | payer OTHER, MEDICAID, SELFPAY | PROVIDERS: PCP Registered Nurse; Visit Provider Nurse Practitioner Women's Health | DX: Z3A.08 8 weeks gestation of pregnancy (principal); Z34.90 Encounter for supervision of normal pregnancy, unspecified, unspecified trimester | CPT/HCPCS: 76801; 80307; 84315; 85025; 86592; 86762; 86803; 87086; 87340; 87491; 87591; 87806 ==

== ENCOUNTER → 2023-12-04 08:11 | Outpatient (BNVA) | payer OTHER, MEDICAID, SELFPAY | PROVIDERS: PCP Registered Nurse; Visit Provider Obstetrics & Gynecology | DX: Z01.419 Encounter for gynecological examination (general) (routine) without abnormal findings | CPT/HCPCS: 84315; 87624 ==

== ENCOUNTER → 2024-08-26 14:03 | Outpatient (BNVA) | payer MEDICAID, SELFPAY | PROVIDERS: PCP Registered Nurse; Visit Provider Nurse Practitioner | DX: R05.9 Cough, unspecified (principal) | CPT/HCPCS: 87400; 87426 ==